=== PATIENT | male | born 1960 | race Caucasian/White ===

== ENCOUNTER → 2016-09-03 | Outpatient (CLI) | payer BC ==
[~2016-09-03] MED LIST: APRE1TAB3 PO; ASPCH81X PO; ASPI81TA28 PO; ATOR10TA88 PO; BUPR-267 PO; CALC0.5C17 PO; CALC1CRE2 TOP; CHOL200027 PO; CIPR-255 PO; COMPOUND TOP; DICLOFENAC GEL TOP; DULO60CA44 PO; FLM4 PO; LDXCR60 TOP; LEVO100T7 PO; LEVO25TA PO; LISI-461 PO; LPT10 PO; MELO7.5T5 PO; METO1TAB66 PO; MYCO500T5 PO; OXYC-57 PO; OXYC1TAB3 PO; PHEN-1043 PO; PHEN-775 PO; TAMS0.4C38 PO; TEST5GEL TOP; VLM5CL PO
[2016-09-03 14:12] LABS: THYROID STIMULATING HORMONE 0.414 uIu/ml (0.300-4.500)
== END | disposition home or self-care (01) ==
LOC: C.LABMFLN 07:50
PROVIDERS: ATTEND Family Medicine
DX: E55.9 Vitamin D deficiency, unspecified (principal); E03.9 Hypothyroidism, unspecified

== ENCOUNTER → 2016-10-03 | Outpatient (CLI) | payer BC ==
[~2016-10-03] MED LIST changes: +ATOR10TA82 PO; -ATOR10TA88 PO; +CALC0.5C PO; -CALC0.5C17 PO; +METO-452 PO; -METO1TAB66 PO
--- NOTE | 2016-10-03 10:19 | DIAGNOSTIC IMAGING REPORT ---
LEFT KNEE RADIOGRAPHS WITH COMPARISON STANDING AP RADIOGRAPH OF THE RIGHT KNEE CLINICAL HISTORY: Medial left knee pain. COMPARISON: None FINDINGS: Comparison standing AP radiograph of the right knee demonstrates minimal medial compartment joint space narrowing. Alignment of the left knee is anatomic. No joint effusion, fracture or suspicious lesion is evident. Joint spaces are preserved. Minimal osteophytosis is noted with preserved joint spaces. There is mild pre-/infrapatellar soft tissue swelling. IMPRESSION: 1. No acute fracture or joint effusion of the left knee. 2. Preserved joint spaces of the left knee with minimal osteophytosis. 3. Mild pre and infrapatellar soft tissue swelling. Electronically signed by: Antonio Hyde M.D. 10/03/2016 10:17 AM Dictated Date/Time: 10/03/2016 10:15 AM
== END | disposition home or self-care (01) ==
LOC: C.RDSM 10:00
PROVIDERS: ATTEND Physician Assistant
DX: M25.562 Pain in left knee (principal)

== ENCOUNTER → 2016-10-09 | Outpatient (CLI) | payer BC ==
--- NOTE | 2016-10-09 12:53 | DIAGNOSTIC IMAGING REPORT ---
LEFT KNEE MRI HISTORY: Left knee pain. COMPARISON STUDY: Left knee 10/03/2016. TECHNIQUE: Multiplanar multisequence MRI of the left knee was performed according to standard department protocol without the use of contrast. FINDINGS: Menisci: Tiny focus of abnormal signal the free edge of the posterior horn of the lateral meniscus. This is consistent with a small radial tear. Abnormal signal throughout the majority of the body and posterior horn of the medial meniscus is consistent with a combination of degeneration and a horizontal tear. This also extends to the posterior meniscal root. The body of the medial meniscus is slightly extruded from the joint space. Ligaments: The anterior and posterior cruciate ligaments are intact. The medial and lateral collateral ligaments are normal in appearance. Extensor mechanism: The quadriceps tendon and patellar ligament are intact. Articular cartilage and bone: No fracture or dislocation. Mild chondromalacia within the lateral tibial plateau. There is also mild cartilage fraying at the patellar facet. Joint effusion: Trace. Soft tissues: Tiny popliteal cyst. IMPRESSION: 1. Bilateral meniscal tears as described above. 2. Mild chondromalacia as described above. 3. Trace knee effusion. 4. Tiny popliteal cyst. Electronically signed by: Silvestre Gregorio M.D. 10/09/2016 12:50 PM Dictated Date/Time: 10/09/2016 12:42 PM
== END | disposition home or self-care (01) ==
LOC: C.MRIBC 11:26
PROVIDERS: ATTEND Physician Assistant
DX: M25.562 Pain in left knee (principal); M94.262 Chondromalacia, left knee; M25.462 Effusion, left knee; M71.22 Synovial cyst of popliteal space [Baker], left knee

== ENCOUNTER → 2016-10-10 | Outpatient (CLI) | payer BC ==
[2016-10-13 15:01] LABS: CARBOXY THC TO CREAT RATIO 55 NG/MG; CARBOXY THC UR GC/MS 89 NG/ML (CUTOFF=5); URCREATININE 163.5 MG/DL (>/= 20)
== END | disposition home or self-care (01) ==
LOC: C.LABMFLN 11:31
PROVIDERS: ATTEND Family Medicine
DX: M51.36 Other intervertebral disc degeneration, lumbar region (principal)

== ENCOUNTER → 2016-10-27 | Day surgery (SDC) | payer BC ==
[2016-10-13 12:23] VITALS: BMI 31.0
[2016-10-15 12:23] LABS: HEMATOCRIT 39.6 % (42-52); MEAN CELL VOLUME 65.8 fL (80-100); MEAN CORPUSCULAR HEMOGLOBIN 19.9 pg (25-34); MEAN CORPUSCULAR HGB CONC 30.3 g/dl (32-36); MEAN PLATELET VOLUME 10.9 fL (7.4-10.4); PLATELET COUNT 224 K/uL (130-400); RED BLOOD COUNT 6.02 M/uL (4.7-6.1); WHITE BLOOD COUNT 7.97 K/uL (4.8-10.8)
[2016-10-15 12:33] LABS: PROTHROMBIN TIME (PATIENT) 10.7 SECONDS (9.0-12.0)
[2016-10-15 14:26] LABS: CREATININE 0.89 mg/dl (0.60-1.40); POTASSIUM 3.9 mmol/L (3.5-5.1)
[2016-10-16 08:03] VITALS: Ht 185.4 cm; Wt 106.8 kg
[~2016-10-27] VITALS: Ht 185.4 cm; Wt 106.8 kg
[~2016-10-27] MED LIST changes: -ASPCH81X PO; +ATROPINE SULFATE 0.1 MG/ML 5ML SYR IV PRN; +BUPIVACAINE/EPINEPHRINE 0.5% MPF 1:200,000 30 ML VIAL ONE; +CEFAZOLIN 2000 MG/60 ML D5W IV SCH; -COMPOUND TOP; +DEXAMETHASONE SOD INJ 4 MG/ML VIAL ONE; +EpHEDrine SULFATE INJ 50 MG/ML AMP IV PRN; +EpHEDrine SULFATE INJ 50 MG/ML AMP ONE; +FENTANYL CITRATE INJ 50 MCG/1 ML 2 ML VIAL ONE; +GLYCOPYRROLATE INJ 0.2 MG/ML VIAL ONE; +HYDROmorphone INJ 1 MG/ML SYR IV PRN; +LABETALOL HCL IV 5 MG/ML 20ML IV PRN; +LACTATED RINGER'S 1000ML 1,000 ML IV SCH; -LEVO25TA PO; +LIDOCAINE HCL 1% 20 ML VIAL ONE; +LIDOCAINE HCL 2% 2 ML VIAL (20MG/ML) ONE; +METOCLOPRAMIDE HCL INJ 5 MG/ML 2 ML VIAL IV PRN; +MIDAZOLAM HCL 1 MG/ML 2ML VIAL ONE; +MoRPHine SULFATE 4 MG/ML 1 ML CARP\\VIAL IV PRN; +NALOXONE HCL 0.4 MG/1 ML VIAL/CARP IV PRN; +ONDANSETRON INJ 2 MG/ML 2 ML VIAL IV PRN; +ONDANSETRON INJ 2 MG/ML 2 ML VIAL ONE; +OXYCODONE/ACETAMINOPHEN 5-325 TAB PO PRN; +PROMETHAZINE HCL INJ 12.5 MG in SODIUM CHLORIDE 0.9% 50ML 50 ML IV PRN; +PROPOFOL IV EMULSION 10 MG/ML 20 ML VIAL IV ONE; +SODIUM CHLORIDE 0.9% 1000ML 1,000 ML IV SCH; +SODIUM CHLORIDE 0.9% INJ 10 ML VIAL ONE; +VASOPRESSIN 20 UNIT/ML VIAL ONE; +WATER, STERILE FOR INJ 10 ML VIAL ONE
--- NOTE | 2016-10-27 06:49 | History & Physical Bridge - SC ---
H&P Re-Evaluation Bridge Note: I have examined the patient, reviewed the History & Physical and in the interval since the performance of the History & Physical I have noted the following changes of clinical significance: No changes noted
--- NOTE | 2016-10-27 07:34 | Discharge Instructions-SurgCtr ---
Discharge Instructions Date of Service October 27, 2016. Visit Reason for Visit: Left Knee Meniscus Tears, Chondromalacia;Pre-Op Discharge Discharge Diagnosis / Problem: Left knee, medial/lateral meniscus tears, chondromalacia Discharge Goals Goal(s): Decrease discomfort, Improve function, Increase independence Medications Restart Stopped Medication(s): Please use Aspirin 325mg every AM & PM x 2 weeks for DVT prophylaxis Activity Recommendations Activity Limitations: as noted below Lifting Limitations: gradually increase as tolerated Exercise/Sports Limitations: gradually increase as tolerated Shower/Bathe: keep incision dry Driving or Machine Use: when post-operative narcotics have been discontinued, full weightbearing, and range of motion greater than 90 degrees Weightbearing Status: Left weightbearing (as tolerated) Anesthesia . Post Anesthesia Instructions: If you have had General Anesthesia or IV Sedation: * Do not drive today. * Resume driving when surgeon permits. * Do not make important decisions or sign legal documents today. * Call surgeon for: 1. Temperature elevations greater than 101 degrees F. 2. Uncontrollable pain. 3. Excessive bleeding. 4. Persistent nausea and vomiting. 5. Medication intolerance (nausea, vomiting or rash). * For nausea and vomiting use only clear liquids such as: tea, soda, bouillon until nausea subsides, then gradually increase diet as tolerated. * If you have any concerns or questions, call your surgeon's office. If physician is unavailable and it is an emergency, call 911 or go to the nearest emergency room. . Instructions / Follow-Up Instructions / Follow-Up DIET: * Resume previous diet. MEDICATIONS: * Please take your prescriptions as instructed at your pre-op appointment and/ or see medication discharge instructions listed above. * If concerns develop, call your physician's office at . SPECIAL CARE INSTRUCTIONS: * Ice/Elevate as instructed. * Keep dressing clean, dry, intact. * Your surgical extremity may be discolored due to prepping agents used on the skin. A bluish-green tint is a normal variant and should not cause alarm. Call your doctor at [phone] if: * Temperature above 101 degrees * Pain not relieved by pain medicine ordered * There is increased drainage or redness from any incision * You have any unanswered questions, problems or concerns. FOLLOW UP VISIT: * If not already scheduled, please call the office at to schedule a follow-up appointment. Diet Recommendations Home Diet: resume previous diet Procedures Procedures Performed: Left knee arthroscopy, loose body removal, partial medial and lateral meniscectomy, chondroplasty, exam under anesthesia Pending Studies Studies pending at discharge: no Medical Emergencies . Who to Call and When: Medical Emergencies: If at any time you feel your situation is an emergency, please call 911 immediately. . Non-Emergent Contact Non-Emergency issues call your: Primary Care Provider . . "Provider Documentation" section prepared by Kan Fry. . [place] Drug Monitoring Program Search Results: no issues identified
--- NOTE | 2016-10-27 08:13 | [facility] Post Operative Brief Note ---
Immediate Operative Summary Operative Date October 27, 2016. Pre-Operative Diagnosis Medial & Lateral Meniscus Tears, Chondromalacia Post-Operative Diagnosis Same, Loose Body Procedure(s) Performed Left knee arthroscopy, loose body removal, partial medial and lateral meniscectomy, chondroplasty, exam under anesthesia Surgeon Dr. Gaurang Arboleda Real Estate Salesperson Surgeon(s) Dr. Jeffery Robledo Findings same Specimens none Drains none Anesthesia general Complication(s) None Disposition Recovery Room / PACU
--- NOTE | 2016-10-27 08:46 | [facility] Operative Report ---
Operative Report Operative Date October 27, 2016. Pre-Operative Diagnosis Left knee Medial & Lateral Meniscus Tears, Chondromalacia Post-Operative Diagnosis Same, Loose Body Procedure(s) Performed 1) Left Knee Arthroscopy, Chondroplasty: Patella and Lateral Tibial Plateau W/ Partial Lateral Meniscectomy. 2) Removal Loose Body. 3) Partial Medial Meniscectomy. 4) Exam Under Anesthesia. Surgeon Dr. Gaurang Arboleda Edi Coordinator Surgeon(s) Dr. Jeffery Robledo Estimated Blood Loss 5CC Findings The left knee was examined under anesthesia. Range of motion was 0-130 degrees. Ligamentous examination exhibited: stable Stefani, posterior drawer, varus and valgus stress at 0 & 30 degrees. ARTHROSCOPIC FINDINGS: There was some synovitis in the suprapatellar pouch. 1) PATELLOFEMORAL JOINT: The articular cartilage of the Patella had Outerbridge type II changes about the central portion and lateral patellar facets. The Trochlea was intact. 2) GUTTERS: Several small loose bodies. 3) MEDIAL COMPARTMENT: The articular cartilage of the femur and Tibia was intact. The medial meniscus had a significant complex degenerative tear from the posterior horn to the apex. 4) ACL/PCL: They were both visualized and probed to be intact. 5) LATERAL COMPARTMENT: The lateral compartment was then entered in a figure-of- four position. The femoral articular cartilage was intact. The tibial articular cartilage had type II changes centrally and toward the posterior horn. The lateral meniscus had fraying posteriorly and along the apex. Fluids (cc crystalloids) 1350 Specimens none Drains N/A Anesthesia LMA Complication(s) None Disposition Recovery Room / PACU (Stable) Implants n/a Indications This is a 56-year-old male who has clinical and MRI findings consistent with left knee meniscus tear and chondromalacia. I recommended that a left knee arthroscopy be performed with meniscus repair vs debridement, possible chondroplasty versus microfracture. The patient understands the risks of surgery, which include but not limited to: bleeding, infection, re-operation, damage to nerves and arteries, continued knee pain, progression of OA, DVT, and a 2-5% risk of becoming worse after surgery. The patient understands all of these instructions and explanations, all of his questions have been satisfactorily addressed and the patient has elected to proceed. Informed consent was signed. Description of Procedure The patient was taken to the Operating Room and placed in the supine position after general anesthetic was administered. My initials and a multidisciplinary time-out were used to identify the left leg as the correct operative limb. Prior to the incision, 2 grams of intravenous Ancef was given. The left knee was then injected with 20cc of a 50:50 mix of 1% Lidocaine plain and 0.5% Bupivacaine with epinephrine in a sterile fashion using the superolateral portal. The left leg was then prepped and draped in a standard sterile fashion. The anterolateral, anteromedial, and superolateral portals were injected with the 50:50 mixture noted above, for a total of 10cc, in the standard fashion. An anterolateral arthroscopic portal was established with an 11-blade. Next, the arthroscope was introduced into the knee. A diagnostic arthroscopy commenced and both the superolateral and anteromedial portals were established under direct visualization using a spinal needle followed by an 11 blade in the standard fashion. The above findings were observed during the diagnostic arthroscopy. The synovitis and anterior fat pad were debrided as they were encounter with mechanical shaver and [place]. The loose bodies were removed as they were encountered with outflow cannula and mechanical shaver. The articular cartilage damage was debrided back to stable margins as they were encountered with mechanical shaver. The medial and lateral meniscus tears were evaluated and found to be irreparable and was debrided back to stable margin with hand punches, and mechanical shaver. The knee was copiously irrigated. The arthroscopic instruments were then removed. The portals were closed with 3-0 Prolene in a standard fashion. The wound was dressed with Xeroform gauze, sterile gauze, ABDs, sterile Webril, and a foot to thigh Andres bandage. The patient was then transferred to the Recovery Room in stable condition. The sponge and needle counts were correct. Post-op Instructions: The patient will be WBAT. The patient may remove the operative dressing on Post -Op Day #2 and apply Band-Aids to the wounds. The patient may shower in 72 hours and is to wear the ALEXIS for 2 weeks on the operative limb. The patient is to use the pain medicine as needed and take the ASA for 2 weeks. The patient was also given a handout for home quad strengthening and seated self-assisted ROM exercises, which they may begin tomorrow. The patient was given a prescription for PT and is scheduled for an appointment later this week. The patient is to follow up with me in 10-15 days. I attest to the content of the Intraoperative Record and any orders documented therein. Any exceptions are noted below.
--- NOTE | 2016-10-27 09:51 | Anesthesia Progress Nt - [facility] ---
Anesthesia Post Op Note Date & Time October 27, 2016 at 09:51 Vital Signs Pain Intensity: 4 Vital Signs Past 12 Hours Date Time Temp Pulse Resp B/P Pulse Ox O2 Delivery O2 Flow Rate FiO2 10/27/16 09:36 71 11 10/27/16 09:36 71 11 98 10/27/16 09:35 137/86 10/27/16 09:31 36.4 71 14 125/81 97 Room Air 10/27/16 09:31 69 15 10/27/16 09:31 68 15 92 10/27/16 09:30 125/81 10/27/16 09:26 67 12 98 10/27/16 09:26 67 12 10/27/16 09:25 142/79 10/27/16 09:21 72 22 10/27/16 09:21 72 22 93 10/27/16 09:20 134/85 10/27/16 09:16 74 20 10/27/16 09:16 75 20 93 10/27/16 09:15 146/95 10/27/16 09:11 73 15 98 10/27/16 09:11 73 15 10/27/16 09:10 154/99 10/27/16 09:06 72 20 97 10/27/16 09:06 72 20 10/27/16 09:05 153/88 10/27/16 09:01 75 18 10/27/16 09:01 74 18 99 10/27/16 09:00 151/89 10/27/16 08:56 77 21 10/27/16 08:56 21 10/27/16 08:55 148/86 10/27/16 08:51 83 24 154/101 94 10/27/16 08:51 36.7 85 16 154/101 97 Mask 6 10/27/16 08:51 88 24 10/27/16 06:49 37 59 16 140/83 97 Room Air Notes Mental Status: alert / awake / arousable, participated in evaluation Pt Amnestic to Procedure: Yes Nausea / Vomiting: adequately controlled Pain: adequately controlled Airway Patency, RR, SpO2: stable & adequate BP & HR: stable & adequate Hydration State: stable & adequate Anesthetic Complications: no major complications apparent
[2016-10-27 10:15] VITALS: BP 135/80; PULSE 56; O2SAT 96
== END | disposition home or self-care (01) ==
LOC: X.SURG 06:25
PROVIDERS: ATTEND Orthopaedic Surgery Sports Medicine
DX: M23.222 Derangement of posterior horn of medial meniscus due to old tear or injury, left knee (principal); M23.262 Derangement of other lateral meniscus due to old tear or injury, left knee; M94.262 Chondromalacia, left knee; I10 Essential (primary) hypertension; G47.30 Sleep apnea, unspecified; F41.9 Anxiety disorder, unspecified; Z79.82 Long term (current) use of aspirin; Z79.899 Other long term (current) drug therapy

== ENCOUNTER → 2016-12-04 | Outpatient (CLI) | payer BC ==
[~2016-12-04] MED LIST changes: -ATROPINE SULFATE 0.1 MG/ML 5ML SYR IV PRN; -BUPIVACAINE/EPINEPHRINE 0.5% MPF 1:200,000 30 ML VIAL ONE; -CEFAZOLIN 2000 MG/60 ML D5W IV SCH; -DEXAMETHASONE SOD INJ 4 MG/ML VIAL ONE; -EpHEDrine SULFATE INJ 50 MG/ML AMP IV PRN; -EpHEDrine SULFATE INJ 50 MG/ML AMP ONE; -FENTANYL CITRATE INJ 50 MCG/1 ML 2 ML VIAL ONE; -GLYCOPYRROLATE INJ 0.2 MG/ML VIAL ONE; -HYDROmorphone INJ 1 MG/ML SYR IV PRN; -LABETALOL HCL IV 5 MG/ML 20ML IV PRN; -LACTATED RINGER'S 1000ML 1,000 ML IV SCH; -LIDOCAINE HCL 1% 20 ML VIAL ONE; -LIDOCAINE HCL 2% 2 ML VIAL (20MG/ML) ONE; -METOCLOPRAMIDE HCL INJ 5 MG/ML 2 ML VIAL IV PRN; -MIDAZOLAM HCL 1 MG/ML 2ML VIAL ONE; -MoRPHine SULFATE 4 MG/ML 1 ML CARP\\VIAL IV PRN; -NALOXONE HCL 0.4 MG/1 ML VIAL/CARP IV PRN; -ONDANSETRON INJ 2 MG/ML 2 ML VIAL IV PRN; -ONDANSETRON INJ 2 MG/ML 2 ML VIAL ONE; -OXYCODONE/ACETAMINOPHEN 5-325 TAB PO PRN; -PROMETHAZINE HCL INJ 12.5 MG in SODIUM CHLORIDE 0.9% 50ML 50 ML IV PRN; -PROPOFOL IV EMULSION 10 MG/ML 20 ML VIAL IV ONE; -SODIUM CHLORIDE 0.9% 1000ML 1,000 ML IV SCH; -SODIUM CHLORIDE 0.9% INJ 10 ML VIAL ONE; -VASOPRESSIN 20 UNIT/ML VIAL ONE; -WATER, STERILE FOR INJ 10 ML VIAL ONE
== END | disposition home or self-care (01) ==
LOC: C.LABMFLN 09:28
PROVIDERS: ATTEND Internal Medicine Endocrinology, Diabetes & Metabolism
DX: M85.80 Other specified disorders of bone density and structure, unspecified site (principal)

== ENCOUNTER 2016-12-22 07:48 | Emergency (ER) | payer BC ==
[~2016-12-22] VITALS: Ht 185.4 cm; Wt 101.2 kg
[~2016-12-22 07:48] MED LIST changes: -APRE1TAB3 PO; -ASPI81TA28 PO; -ATOR10TA82 PO; -CALC0.5C PO; -CIPR-255 PO; -DICLOFENAC GEL TOP; -FLM4 PO; -MELO7.5T5 PO; -OXYC1TAB3 PO; -PHEN-1043 PO; -PHEN-775 PO; -TAMS0.4C38 PO; -TEST5GEL TOP
[2016-12-22 07:51] VITALS: TEMP 36.6; Ht 185.4 cm; Wt 101.2 kg
[2016-12-22] MEDS ORDERED: MoRPHine SULFATE 10 MG/ML CARP/VIAL IV STA (08:22)
[2016-12-22] MEDS ORDERED: SODIUM CHLORIDE 0.9% 1000ML 1,000 ML IV STA (08:22)
[2016-12-22] MEDS ORDERED: ONDANSETRON INJ 2 MG/ML 2 ML VIAL IV STA (08:22)
[2016-12-22 08:52] LABS: URINE APPEARANCE CLEAR (CLEAR); URINE BILIRUBIN NEG (NEG); URINE COLOR YELLOW; URINE NITRITE NEG (NEG); URINE PH 5.5 (4.5-7.5); URINE SPECIFIC GRAVITY 1.016 (1.000-1.030); UROBILINOGEN NEG (NEG); ZZUR CULT IF INDIC CLEAN CATCH NO
[2016-12-22 08:53] LABS: MANUAL MICROSCOPIC REQUIRED? NO; REVIEW REQ? NO
[2016-12-22 08:54] LABS: BASO % 0.5 %; BASO ABS # 0.06 K/uL (0-0.2); EOS % 0.7 %; IG% 0.3 %; LYMPH % 24.8 %; LYMPH ABS # 2.88 K/uL (1.2-3.4); MEAN CELL VOLUME 65.6 fL (80-100); MEAN CORPUSCULAR HEMOGLOBIN 20.9 pg (25-34); MEAN CORPUSCULAR HGB CONC 31.9 g/dl (32-36); MONO % 9.2 %; NEUT % 64.5 %; PLATELET COUNT 222 K/uL (130-400); RED BLOOD COUNT 6.55 M/uL (4.7-6.1); WHITE BLOOD COUNT 11.59 K/uL (4.8-10.8)
--- NOTE | 2016-12-22 09:06 | DIAGNOSTIC IMAGING REPORT ---
PA CHEST WITH ABDOMINAL SERIES CLINICAL HISTORY: Left-sided abdominal pain. Reported history of recent diagnosis of diverticulitis. FINDINGS: A PA chest radiograph is compared to study dated 01/02/2014 and correlated with chest CT dated 01/02/2014. The heart is top normal in size. The mediastinal contour is within normal limits. There is chronic elevation of the right hemidiaphragm with associated atelectasis. Nonspecific interstitial thickening is similar to previous. No airspace consolidation is seen typical for pneumonia and there is no large pleural effusion. No pneumothorax is seen. The skeletal structures are osteopenic. The bony thorax is grossly intact. Supine and erect abdominal radiographs are correlated with abdominal CT dated 01/02/2014. There is a nonobstructed abdominal bowel gas pattern. No evidence of intraperitoneal free air is seen. Postoperative change is noted in the left mid abdomen and the pelvis. There are no abnormal abdominal calcifications. Numerous pelvic phleboliths are observed. There is moderate to advanced lumbosacral spondylosis with evidence of previous lumbosacral spinal surgery. The bony pelvis appears intact. IMPRESSION: 1. No acute cardiopulmonary abnormality. 2. Nonobstructed abdominal bowel gas pattern. 3. No intraperitoneal free air is seen.. Electronically signed by: Pavan Butterfield M.D. 12/22/2016 9:05 AM Dictated Date/Time: 12/22/2016 9:02 AM
[2016-12-22 09:13] LABS: BUN/CREATININE RATIO 10.5 (10-20); CALCIUM 9.2 mg/dl (8.5-10.1); CREATININE 1.1 mg/dl (0.60-1.40); POTASSIUM 3.8 mmol/L (3.5-5.1)
[2016-12-22 09:23] LABS: COMPLETE YES; MICROCYTOSIS PRESENT
[2016-12-22] MEDS ORDERED: TAMS0.4C38 PO (10:33)
--- NOTE | 2016-12-22 10:35 | EMERGENCY ROOM VISIT NOTE ---
History First contact with patient: 07:57 Chief Complaint: ABDOMINAL PAIN Stated Complaint: STOMACH PAIN Nursing Triage Summary: Pt presents with left sided abd pain, worse since Sat. Seen at [facility] on Sat and dx with diverticulitis and placed on Cipro/Flagyl. Pt states last BM was mid week last week. History of Present Illness The patient is a 56 year old male who presents to the Emergency Room with complaints of left-sided abdominal pain. The patient states that his symptoms started one week ago. He admits to associated nausea but denies any vomiting. The patient denies any hematochezia or melena. The patient denies any urinary symptoms of frequency, urgency, dysuria. The patient denies any fever. The patient has a history of diverticulitis. He went to [facility] ER on Thursday and they did a CT of his abdomen which revealed diverticulitis. He was placed on Cipro and Flagyl as well as Percocet for pain. He was not instructed to follow a clear liquid diet although the patient states he does not have an appetite. The patient presents today because he woke up at 3 AM with severe left lower quadrant pain. He took a Percocet without any relief. The patient also states that he is concerned because he had a perforation due to his diverticulitis in the past. He had a temporary colostomy. Review of Systems 10 system review was performed and was negative unless stated otherwise history of present illness. Past Medical/Surgical History Medical Problems: (1) Bronchitis (2) Chronic back pain greater than 3 months duration (3) Depression (4) Diverticulitis (5) HTN (hypertension) (6) Hypothyroidism (7) Kidney stone (8) Psoriasis Surgical Problems: (1) History of appendectomy (2) History of back surgery Family History Diabetes mellitus FH: VT (myocardial infarction) FH: cancer Hypertension Social History Smoking Status: Former Smoker Alcohol Use: occasionally Marital Status: Housing Status: lives with significant other Occupation Status: employed Current/Historical Medications Scheduled Bupropion Hcl (Bupropion Hcl Er), 150 MG PO QAM Cholecalciferol (Vitamin D-3), 5,000 UNIT PO QAM Duloxetine Hcl (Cymbalta), 1 CAP PO QAM Levothyroxine Sodium (Levothyroxine Sodium), 1 TAB PO QAM Lisinopril (Lisinopril), 10 MG PO QAM Metoprolol Succinate (Toprol Xl), 50 MG PO HS Mycophenolate Mofetil (Mycophenolate Mofetil), 1,500 MG PO QAM Scheduled PRN Calcipotriene (Calcipotriene), 1 APPLN TOP for PSORIASIS Diazepam (Diazepam), 5 MG PO for BACK SPASMS Fluocinonide (Fluocinonide), 1 APPLN TOP for PSORIASIS Oxycodone/Acetaminophen 5MG/325MG (Percocet 5MG/325MG), 0.5-1 TABLET PO Q8 PRN for Pain Allergies Coded Allergies: No Known Allergies (Unverified , 12/22/16) Physical Exam Vital Signs Date Time Temp Pulse Resp B/P (MAP) Pulse Ox O2 Delivery O2 Flow Rate FiO2 12/22/16 10:05 63 18 189/99 98 Room Air 12/22/16 07:51 36.6 86 18 169/103 98 Room Air Physical Exam GENERAL: 56-year-old white male appears slightly uncomfortable secondary to pain. MENTAL Status: Alert and oriented 3. EYES: No icterus noted MOUTH: Mucosa is moist NECK: Supple, no lymphadenopathy noted. No carotid bruits noted. LUNGS: Clear auscultation without wheezes rales or rhonchi. CARDIAC: Regular rate and rhythm without murmur. Pulses is full and equal throughout. BACK: No CVA tenderness noted. ABDOMEN: Positive bowel sounds all 4 quadrants. Soft, tenderness to palpation in the left lower quadrant otherwise nontender without organomegaly or masses. No rebound or rigidity noted. No peritoneal signs. EXTREMITIES: No cyanosis or edema noted. Medical Decision & Procedures ER Provider Diagnostic Interpretation: PA CHEST WITH ABDOMINAL SERIES CLINICAL HISTORY: Left-sided abdominal pain. Reported history of recent diagnosis of diverticulitis. FINDINGS: A PA chest radiograph is compared to study dated 01/02/2014 and correlated with chest CT dated 01/02/2014. The heart is top normal in size. The mediastinal contour is within normal limits. There is chronic elevation of the right hemidiaphragm with associated atelectasis. Nonspecific interstitial thickening is similar to previous. No airspace consolidation is seen typical for pneumonia and there is no large pleural effusion. No pneumothorax is seen. The skeletal structures are osteopenic. The bony thorax is grossly intact. Supine and erect abdominal radiographs are correlated with abdominal CT dated 01/02/2014. There is a nonobstructed abdominal bowel gas pattern. No evidence of intraperitoneal free air is seen. Postoperative change is noted in the left mid abdomen and the pelvis. There are no abnormal abdominal calcifications. Numerous pelvic phleboliths are observed. There is moderate to advanced lumbosacral spondylosis with evidence of previous lumbosacral spinal surgery. The bony pelvis appears intact. IMPRESSION: 1. No acute cardiopulmonary abnormality. 2. Nonobstructed abdominal bowel gas pattern. 3. No intraperitoneal free air is seen.. Electronically signed by: Pavan Butterfield M.D. 12/22/2016 9:05 AM Dictated Date/Time: 12/22/2016 9:02 AM Laboratory Results 12/22/16 08:05 Red Blood Count 6.55, Mean Corpuscular Volume 65.6, Mean Corpuscular Hemoglobin 20.9, Mean Corpuscular Hemoglobin Concent 31.9, Neutrophils (%) (Auto) 64.5, Lymphocytes (%) (Auto) 24.8, Monocytes (%) (Auto) 9.2, Eosinophils (%) (Auto) 0.7, Basophils (%) (Auto) 0.5, Neutrophils # (Auto) 7.47, Lymphocytes # (Auto) 2.88, Monocytes # (Auto) 1.07, Eosinophils # (Auto) 0.08, Basophils # (Auto) 0.06 12/22/16 08:05 Test 12/22/16 08:05 12/22/16 08:30 White Blood Count 11.59 K/uL (4.8-10.8) Red Blood Count 6.55 M/uL (4.7-6.1) Hemoglobin 13.7 g/dL (14.0-18.0) Hematocrit 43.0 % (42-52) Mean Corpuscular Volume 65.6 fL (80-100) Mean Corpuscular Hemoglobin 20.9 pg (25-34) Mean Corpuscular Hemoglobin Concent 31.9 g/dl (32-36) Platelet Count 222 K/uL (130-400) Neutrophils (%) (Auto) 64.5 % Lymphocytes (%) (Auto) 24.8 % Monocytes (%) (Auto) 9.2 % Eosinophils (%) (Auto) 0.7 % Basophils (%) (Auto) 0.5 % Neutrophils # (Auto) 7.47 K/uL (1.4-6.5) Lymphocytes # (Auto) 2.88 K/uL (1.2-3.4) Monocytes # (Auto) 1.07 K/uL (0.11-0.59) Eosinophils # (Auto) 0.08 K/uL (0-0.5) Basophils # (Auto) 0.06 K/uL (0-0.2) RDW Standard Deviation 37.0 fL (36.4-46.3) RDW Coefficient of Variation 15.7 % (11.5-14.5) Immature Granulocyte % (Auto) 0.3 % Immature Granulocyte # (Auto) 0.03 K/uL (0.00-0.02) Microcytosis PRESENT Anion Gap 7.0 mmol/L (3-11) Est Creatinine Clear Calc Drug Dose 91.5 ml/min Estimated GFR () 85.3 Estimated GFR (Non- 73.6 BUN/Creatinine Ratio 10.5 (10-20) Calcium Level 9.2 mg/dl (8.5-10.1) Total Bilirubin 0.8 mg/dl (0.2-1) Direct Bilirubin 0.1 mg/dl (0-0.2) Aspartate Amino Transf (AST/SGOT) 12 U/L (15-37) Alanine Aminotransferase (ALT/SGPT) 28 U/L (12-78) Alkaline Phosphatase 66 U/L (45-117) Total Protein 7.1 gm/dl (6.4-8.2) Albumin 4.0 gm/dl (3.4-5.0) Lipase 469 U/L (73-393) Urine Color YELLOW Urine Appearance CLEAR (CLEAR) Urine pH 5.5 (4.5-7.5) Urine Specific [place] 1.016 (1.000-1.030) Urine Protein 1+ (NEG) Urine Glucose (UA) NEG (NEG) Urine Ketones NEG (NEG) Urine Occult Blood 3+ (NEG) Urine Nitrite NEG (NEG) Urine Bilirubin NEG (NEG) Urine Urobilinogen NEG (NEG) Urine Leukocyte Esterase SMALL (NEG) Urine WBC (Auto) 1-5 /hpf (0-5) Urine RBC (Auto) >30 /hpf (0-4) Urine Hyaline Casts (Auto) 1-5 /lpf (0-5) Urine Epithelial Cells (Auto) 5-10 /lpf (0-5) Urine Bacteria (Auto) NEG (NEG) Medications Administered Medications (Trade) Dose Ordered Sig/Jeyson Route Start Time Stop Time Status Last Admin Dose Admin Sodium Chloride 1,000 ml @ 999 mls/hr Q1H1M STAT IV 12/22/16 08:22 12/22/16 09:22 DC 12/22/16 08:43 999 MLS/HR Ondansetron HCl (Zofran Inj) 4 mg NOW STAT IV 12/22/16 08:22 12/22/16 08:25 DC 12/22/16 08:43 4 MG Morphine Sulfate (MoRPHine SULFATE INJ) 6 mg NOW STAT IV 12/22/16 08:22 12/22/16 08:25 DC 12/22/16 08:44 6 MG ED Course The patient was evaluated. The patient's EMR and medication list were reviewed. I had the wrapper caser try to obtain the patient's ER notes from [facility]. [employer] [place] system was down therefore I never received the report from [facility] [address] concerning the patient's CT. The did admit that they told her that he had stones in his kidneys but not any in his ureter when he had a CAT scan performed on Thursday. He also has an appointment set up to follow-up with urology. IV access was obtained. The patient was given 1 L normal saline wide-open. He was given Zofran 4 mg IV for nausea and morphine 6 mg IV for pain. CBC and differential, renal profile, LFTs and lipase levels were ordered. Urinalysis was ordered. Abdominal series x-ray was ordered and interpreted by the radiologist and myself as above without any acute findings. Labs are reviewed and were unremarkable. Urinalysis revealed 3+ blood, small amount of leukocytes and no evidence of bacteria. Urine culture is pending. The patient was informed of all findings and reevaluated was feeling much better. The patient's case was discussed with Dr. Strong who agreed with treatment plan. The patient was discharged home in stable condition. Medical Decision Differential diagnosis include diverticulitis, bowel perforation, small bowel obstruction, ureteral calculi, UTI A repeat CT scan was not performed since he had one done 2 days ago. I do not feel that the medications have had a chance to work any possibility might have a secondary ureteral calculi contributing to his pain. Impression Primary Impression: Left lower quadrant pain Additional Impressions: Hematuria Diverticulitis Departure Information Dispostion Home / Self-Care Condition GOOD Prescriptions Tamsulosin Hcl (FLOMAX) 0.4 Mg Cap 0.4 MG PO DAILY for 7 Days, #7 CAP Prov: Gita Ruiz PA-C 12/22/16 Referrals Lisa Faulkner M.D. (PCP) Forms Call Back Authorization, HOME CARE DOCUMENTATION FORM, IMPORTANT VISIT INFORMATION Patient Instructions ED Diet Clear Liquid, ED Diverticulitis, Kidney Stones - [facility], [facility], [facility] Additional Instructions Follow clear liquid diet for 24 hours. Continue Cipro and Flagyl as prescribed. Ibuprofen 600 mg every 6 hours for pain. Take Percocet as needed for more severe pain. Do not drive while taking the Percocet. Strain all urine. Take Flomax daily as prescribed. Follow-up with your family doctor later this week for recheck and also keep scheduled appointment with urologist. If you experience any severe abdominal pain, high fevers, uncontrolled nausea vomiting return to ER immediately. Problem Qualifiers Additional Impressions: Diverticulitis Diverticulitis bleeding: unspecified bleeding status Diverticulitis complication: without perforation or abscess
[2016-12-22 11:06] VITALS: BP 162/100; PULSE 62; O2SAT 96
[2017-01-28] MEDS ORDERED: ASPI81TA28 PO (10:05)
[2017-01-28] MEDS ORDERED: CALC0.5C PO (10:05)
[2017-01-28] MEDS ORDERED: APRE1TAB3 PO (10:05)
[2017-01-28] MEDS ORDERED: TEST5GEL TOP (10:05)
[2017-01-28] MEDS ORDERED: ATOR10TA82 PO (10:05)
[2017-01-28] MEDS ORDERED: DICLOFENAC GEL TOP (10:05)
[2017-01-29] MEDS ORDERED: PHEN-775 PO (14:37)
[2017-01-29] MEDS ORDERED: CIPR-255 PO (14:37)
[2017-01-29] MEDS ORDERED: OXYC-57 PO (14:37)
[2017-01-29] MEDS ORDERED: TAMS0.4C38 PO (14:37)
== END 2016-12-22 11:12 | disposition home or self-care (01) ==
LOC: C.EDB 07:49
DX: R10.32 Left lower quadrant pain (principal); R31.9 Hematuria, unspecified; K57.92 Diverticulitis of intestine, part unspecified, without perforation or abscess without bleeding; I10 Essential (primary) hypertension; F32.9 Major depressive disorder, single episode, unspecified; E03.9 Hypothyroidism, unspecified; Z87.442 Personal history of urinary calculi; Z87.891 Personal history of nicotine dependence; Z98.890 Other specified postprocedural states; Z83.3 Family history of diabetes mellitus; Z82.49 Family history of ischemic heart disease and other diseases of the circulatory system; Z79.899 Other long term (current) drug therapy

== ENCOUNTER → 2017-01-05 | Outpatient (CLI) | payer BC ==
[~2017-01-05] MED LIST changes: +APRE1TAB3 PO; +ASPI81TA28 PO; +ATOR10TA88 PO; +CALC0.5C17 PO; +CIPR-255 PO; +DICLOFENAC GEL TOP; +FLM4 PO; -LPT10 PO; +MELO7.5T5 PO; -METO-452 PO; +METO1TAB66 PO; +OXYC1TAB3 PO; +PHEN-1043 PO; +PHEN-775 PO; +TAMS0.4C38 PO; +TEST5GEL TOP
== END | disposition home or self-care (01) ==
LOC: C.LABMFLN 08:09
PROVIDERS: ATTEND Family Medicine
DX: N20.1 Calculus of ureter (principal)

== ENCOUNTER → 2017-01-27 | Outpatient (CLI) | payer BC ==
[2017-01-27 12:20] LABS: BASO % 0.3 %; BASO ABS # 0.04 K/uL (0-0.2); EOS % 0.9 %; HEMATOCRIT 43.5 % (42-52); IG% 0.3 %; LYMPH % 23.4 %; LYMPH ABS # 3.06 K/uL (1.2-3.4); MEAN CELL VOLUME 65.2 fL (80-100); MEAN CORPUSCULAR HEMOGLOBIN 20.4 pg (25-34); MEAN CORPUSCULAR HGB CONC 31.3 g/dl (32-36); MEAN PLATELET VOLUME 10.1 fL (7.4-10.4); MONO % 11.8 %; NEUT % 63.3 %; PLATELET COUNT 219 K/uL (130-400); RED BLOOD COUNT 6.67 M/uL (4.7-6.1); WHITE BLOOD COUNT 13.09 K/uL (4.8-10.8)
[2017-01-27 12:48] LABS: COMPLETE YES; MICROCYTOSIS PRESENT
[2017-01-27 12:49] LABS: BLOOD UREA NITROGEN 17 mg/dl (7-18); BUN/CREATININE RATIO 10.9 (10-20); CARBON DIOXIDE 29 mmol/L (21-32); CHLORIDE 106 mmol/L (98-107); GLUCOSE 86 mg/dl (70-99); POTASSIUM 4.3 mmol/L (3.5-5.1); SODIUM 139 mmol/L (136-145)
== END | disposition home or self-care (01) ==
LOC: C.LAB 10:52
PROVIDERS: ATTEND Urology
DX: N20.0 Calculus of kidney (principal)

== ENCOUNTER → 2017-01-29 | Day surgery (SDC) | payer BC ==
[2017-01-28 10:05] VITALS: BMI 31.0
[~2017-01-29] VITALS: Ht 185.4 cm; Wt 109.1 kg
[~2017-01-29] MED LIST changes: +ATROPINE SULFATE 0.1 MG/ML 5ML SYR IV PRN; +CIPROFLOXACIN / D5W 400 MG IV SCH; +CONRAY 30% 150ML BOTTLE ONE; +DEXAMETHASONE SOD INJ 4 MG/ML VIAL ONE; +EpHEDrine SULFATE 50MG/5ML SYR ONE; +EpHEDrine SULFATE INJ 50 MG/ML AMP IV PRN; +EpHEDrine SULFATE INJ 50 MG/ML AMP ONE; +FENTANYL CITRATE INJ 50 MCG/1 ML 2 ML VIAL IV PRN; +FENTANYL CITRATE INJ 50 MCG/1 ML 2 ML VIAL ONE; +KETOROLAC TROMETHAMINE 30 MG/ML VIAL IV. STA; +LACTATED RINGER'S 1000ML 1,000 ML IV SCH; +LIDOCAINE HCL 2% 2 ML VIAL (20MG/ML) ONE; +MIDAZOLAM HCL 1 MG/ML 2ML VIAL ONE; +ONDANSETRON INJ 2 MG/ML 2 ML VIAL IV PRN; +ONDANSETRON INJ 2 MG/ML 2 ML VIAL ONE; +OXYCODONE/ACETAMINOPHEN 5-325 TAB PO PRN; +PROPOFOL IV EMULSION 10 MG/ML 20 ML VIAL IV ONE; +SODIUM CHLORIDE 0.9% 1000ML 1,000 ML IV SCH; -VLM5CL PO
[2017-01-29 10:11] VITALS: BP 142/88; PULSE 64; TEMP 36.9; O2SAT 98; Ht 185.4 cm; Wt 109.1 kg
--- NOTE | 2017-01-29 14:35 | [facility] Operative Report ---
Operative Report Operative Date Jan 29, 2017. Pre-Operative Diagnosis Left Ureteral Stone Post-Operative Diagnosis Left ureteral stone Procedure(s) Performed Cystoscopy, Retrograde, ureteroscopy, Laser Lithotripsy, Basket extraction , and Ureteral Stent Insertion ([id number]), Left Surgeon Dr. Joaquim Rollins Call Or Contact Centre Coach Surgeon(s) None Estimated Blood Loss 5 ml Findings Left distal ureteral calculus-located just below the vessels Specimens a, Left urtereral stone fragments- Stone analysis Drains 6 Slovenian by 2232 centimeter stent Anesthesia Gen. Complication(s) None Disposition Recovery Room / PACU (stable) Indications Symptomatically left ureteral calculus Description of Procedure Albaro Preston was identified in the preoperative holding area, appropriate informed consents were reviewed and completed and the patient was transported to the operating suite. Upon arrival he received appropriate preoperative antibiotics in the form of ciprofloxacin. Adequate general anesthesia was achieved, and the patient was placed in dorsal lithotomy position where he was sterilely prepped and draped in standard fashion. I begin the case by passing a 22 Slovenian cystoscope with 30 lens. Inspection of the urethra revealed no stricture disease. He has a moderately enlarged prostate was slightly high bladder neck. Full inspection of the bladder was carried out, identifying no tumors stones or other abnormalities. Ureteral orifices were easily identified in orthotopic position. I turned my attention to the left ureteral orifice and cannulated it with a sensor wire and a 10 Slovenian double-lumen catheter. The wire advanced easily, as I went to advance the 10 Slovenian double-lumen I felt slight resistance in the distal ureter. I stopped advancing at that time. I placed a second wire through the second port of the catheter and withdrew the 10 Slovenian double-lumen. I then reentered the ureter up alongside the wires utilizing a semirigid ureteroscope. At the level where I previously palpated resistance, I identified a yellow calculus filling the lumen of the ureter. I passed a 400 laser fiber and began laser lithotripsy. I fragmented the stone into pieces deemed safe for spontaneous passage. I attempted to irrigate the pieces out of the ureter, however this proved to be more difficult than anticipated. As the stones were quite small, I passed a basket and withdrew the stones sequentially utilizing the basket. The stones collected were passed off the table as a specimen for chemical analysis. I passed the scope 1 last time through the ureter, identifying no other retained stones. I then performed retrograde pyelogram, which revealed no hydronephrosis nor filling defects. I placed a 6 Slovenian by 22-32 centimeter double-J ureteral stent observing a good curl in the kidney as well as in the bladder. I decompressed the bladder and concluded the case. Patient was extubated and taken to the PACU in stable condition. I attest to the content of the Intraoperative Record and any orders documented therein. Any exceptions are noted below.
--- NOTE | 2017-01-29 14:36 | DIAGNOSTIC IMAGING REPORT ---
KUB HISTORY: Left LASER/LITHOTRIPSY/ STENT FLUOROSCOPY TIME: 13 seconds. FINDINGS: 3 fluoroscopic spot images were submitted for review. A guidewire and contrast were placed in the left ureter in a retrograde fashion. This is followed by placement of a left ureteral stent. Only the proximal portion of the stent is visualized and is likely in good position. IMPRESSION: Fluoroscopy provided for left ureteral stent placement. Electronically signed by: Silvestre Gregorio M.D. 01/29/2017 2:35 PM Dictated Date/Time: 01/29/2017 2:33 PM
--- NOTE | 2017-01-29 14:40 | Discharge Instructions ---
Discharge Instructions Date of Service Jan 29, 2017. Admission Reason for Admission: Left Ureteral Stone Discharge Discharge Diagnosis / Problem: stone Discharge Goals Goal(s): Decrease discomfort, Improve function, Increase independence, Improve disease control, Prevent Disease Progression Activity Recommendations Activity Limitations: resume your previous activity Lifting Limitations: none Exercise/Sports Limitations: none May Resume Sexual Activity: when tolerated Shower/Bathe: no limitations Driving or Machine Use: resume 1 day after discharge . Instructions / Follow-Up Instructions / Follow-Up Please keep your previously scheduled follow-up appointment for stent removal Discharge Diet Recommended Diet: Regular Diet Procedures Procedures Performed: Cystoscopy, Retrograde, ureteroscopy, Laser Lithotripsy, Basket extraction , and Ureteral Stent Insertion ([id number]), Left Pending Studies Studies pending at discharge: no Medical Emergencies . Who to Call and When: Medical Emergencies: If at any time you feel your situation is an emergency, please call 911 immediately. . Non-Emergent Contact Non-Emergency issues call your: Urologist Call Non-Emergent contact if: you have a fever, temperature is above 101.5, your pain is not controlled, your pain is worsening . . "Provider Documentation" section prepared by Paco Rodriguez. . VTE Core Measure Inpt VTE Proph given/why not?: Treatment not indicated
[2017-01-29 15:10] VITALS: BP 158/96; PULSE 76; TEMP 36.7; O2SAT 94
--- NOTE | 2017-01-29 15:17 | Anesthesiology Progress Note ---
Anesthesia Post Op Note Date & Time Jan 29, 2017 at 15:17 Vital Signs Pain Intensity: 0 Vital Signs Past 12 Hours Date Time Temp Pulse Resp B/P (MAP) Pulse Ox O2 Delivery O2 Flow Rate FiO2 01/29/17 15:04 36.6 75 20 150/88 94 Room Air 01/29/17 15:02 150/88 01/29/17 15:01 72 12 92 01/29/17 15:01 72 12 01/29/17 15:00 164/100 01/29/17 14:56 75 17 01/29/17 14:56 75 17 93 01/29/17 14:55 158/100 01/29/17 14:51 78 17 01/29/17 14:51 80 17 93 01/29/17 14:50 164/92 01/29/17 14:46 78 19 01/29/17 14:46 78 19 155/85 99 01/29/17 14:41 76 20 100 01/29/17 14:41 76 20 01/29/17 14:40 164/96 01/29/17 14:36 81 14 01/29/17 14:36 81 14 98 01/29/17 14:35 163/90 01/29/17 14:31 36.5 76 16 168/91 97 Mask 10 01/29/17 14:31 85 21 01/29/17 14:31 86 21 168/91 98 01/29/17 10:11 36.9 64 18 142/88 (106) 98 Room Air Notes Mental Status: alert / awake / arousable, participated in evaluation Pt Amnestic to Procedure: Yes Nausea / Vomiting: adequately controlled Pain: adequately controlled Airway Patency, RR, SpO2: stable & adequate BP & HR: stable & adequate Hydration State: stable & adequate Anesthetic Complications: no major complications apparent
[2017-01-29 15:45] VITALS: BP 161/85; PULSE 77; TEMP 36.7; O2SAT 97
== END | disposition home or self-care (01) ==
LOC: C.ACU 09:46
PROVIDERS: ATTEND Urology
DX: N20.0 Calculus of kidney (principal); N20.1 Calculus of ureter; Z79.82 Long term (current) use of aspirin; I48.91 Unspecified atrial fibrillation; I10 Essential (primary) hypertension; E11.9 Type 2 diabetes mellitus without complications; E78.5 Hyperlipidemia, unspecified; E03.9 Hypothyroidism, unspecified; M85.80 Other specified disorders of bone density and structure, unspecified site; E29.1 Testicular hypofunction; E66.9 Obesity, unspecified; R73.03 Prediabetes; I15.9 Secondary hypertension, unspecified; E55.9 Vitamin D deficiency, unspecified; Z90.89 Acquired absence of other organs; Z82.49 Family history of ischemic heart disease and other diseases of the circulatory system; Z80.43 Family history of malignant neoplasm of testis; F32.9 Major depressive disorder, single episode, unspecified; G47.33 Obstructive sleep apnea (adult) (pediatric); M54.5 Low back pain; D56.3 Thalassemia minor

== ENCOUNTER → 2017-02-04 | Outpatient (CLI) | payer BC ==
[~2017-02-04] MED LIST changes: -ATROPINE SULFATE 0.1 MG/ML 5ML SYR IV PRN; -CIPROFLOXACIN / D5W 400 MG IV SCH; -CONRAY 30% 150ML BOTTLE ONE; -DEXAMETHASONE SOD INJ 4 MG/ML VIAL ONE; -EpHEDrine SULFATE 50MG/5ML SYR ONE; -EpHEDrine SULFATE INJ 50 MG/ML AMP IV PRN; -EpHEDrine SULFATE INJ 50 MG/ML AMP ONE; -FENTANYL CITRATE INJ 50 MCG/1 ML 2 ML VIAL IV PRN; -FENTANYL CITRATE INJ 50 MCG/1 ML 2 ML VIAL ONE; -KETOROLAC TROMETHAMINE 30 MG/ML VIAL IV. STA; -LACTATED RINGER'S 1000ML 1,000 ML IV SCH; -LIDOCAINE HCL 2% 2 ML VIAL (20MG/ML) ONE; -MIDAZOLAM HCL 1 MG/ML 2ML VIAL ONE; -ONDANSETRON INJ 2 MG/ML 2 ML VIAL IV PRN; -ONDANSETRON INJ 2 MG/ML 2 ML VIAL ONE; -OXYCODONE/ACETAMINOPHEN 5-325 TAB PO PRN; -PROPOFOL IV EMULSION 10 MG/ML 20 ML VIAL IV ONE; -SODIUM CHLORIDE 0.9% 1000ML 1,000 ML IV SCH
--- NOTE | 2017-02-04 08:57 | DIAGNOSTIC IMAGING REPORT ---
KUB CLINICAL HISTORY: N20.0 Calculus of [id number] COMPARISON STUDY: 12/22/2016 FINDINGS: Interval placement of a left ureteral stent. No significant nephrocalcinosis by plain film criteria. Degenerative and postoperative changes of the lumbar spine. Nonobstructive bowel pattern. IMPRESSION: Left ureteral stent in good position. No significant nephrocalcinosis by routine imaging criteria The above report was generated using voice recognition software. It may contain grammatical, syntax or spelling errors. Electronically signed by: Christiano Ruiz M.D. 02/04/2017 8:56 AM Dictated Date/Time: 02/04/2017 8:54 AM
== END | disposition home or self-care (01) ==
LOC: C.RAD 08:32
PROVIDERS: ATTEND Urology
DX: N20.0 Calculus of kidney (principal)

== ENCOUNTER 2017-02-07 13:05 | Emergency (ER) | payer BC ==
[~2017-02-07] VITALS: Ht 185.4 cm; Wt 104.0 kg
[~2017-02-07 13:05] MED LIST changes: -FLM4 PO; -MELO7.5T5 PO; -OXYC1TAB3 PO; -PHEN-1043 PO
[2017-02-07 13:08] VITALS: TEMP 36.5; Ht 185.4 cm; Wt 104.0 kg
[2017-02-07] MEDS ORDERED: HYDROmorphone INJ 1 MG/ML SYR IV STA (13:31)
[2017-02-07] MEDS ORDERED: SODIUM CHLORIDE 0.9% 1000ML 1,000 ML IV STA (13:31)
[2017-02-07] MEDS ORDERED: ONDANSETRON INJ 2 MG/ML 2 ML VIAL IV STA (13:31)
[2017-02-07 13:48] LABS: BASO % 0.8 %; BASO ABS # 0.07 K/uL (0-0.2); EOS % 1.9 %; HEMATOCRIT 43.5 % (42-52); IG% 0.3 %; LYMPH % 32.4 %; LYMPH ABS # 2.92 K/uL (1.2-3.4); MEAN CORPUSCULAR HEMOGLOBIN 20.6 pg (25-34); MEAN CORPUSCULAR HGB CONC 31.7 g/dl (32-36); MEAN PLATELET VOLUME 10.1 fL (7.4-10.4); MONO % 8.6 %; PLATELET COUNT 280 K/uL (130-400); RED BLOOD COUNT 6.69 M/uL (4.7-6.1); WHITE BLOOD COUNT 9.02 K/uL (4.8-10.8)
[2017-02-07 14:06] LABS: BUN/CREATININE RATIO 14.7 (10-20); CALCIUM 9.1 mg/dl (8.5-10.1); CREATININE 1.1 mg/dl (0.60-1.40); POTASSIUM 3.8 mmol/L (3.5-5.1)
[2017-02-07] MEDS ORDERED: MELO7.5T5 PO (14:07)
[2017-02-07] MEDS ORDERED: FLM4 PO (14:07)
[2017-02-07] MEDS ORDERED: PHEN-1043 PO (14:07)
[2017-02-07 14:21] LABS: MANUAL MICROSCOPIC REQUIRED? YES; REVIEW REQ? NO; SULFASALICYLIC ACID POS (NEG); URINE APPEARANCE CLEAR (CLEAR); URINE COLOR ORANGE; URINE SPECIFIC GRAVITY 1.026 (1.000-1.030)
[2017-02-07 14:24] LABS: URINE BACTERIA 1+ (NEG); URINE RBC >30 /hpf (0-4)
[2017-02-07 14:26] LABS: ZZUR CULT IF INDIC CLEAN CATCH YES
--- NOTE | 2017-02-07 14:31 | DIAGNOSTIC IMAGING REPORT ---
ABDOMEN AND PELVIS CT WITHOUT CONTRAST CT DOSE: 744.75 mGy.cm HISTORY: Severe left lower quadrant abdominal pain. TECHNIQUE: Multiaxial CT images of the abdomen and pelvis were performed without contrast. A dose lowering technique was utilized adhering to the principles of ALARA. COMPARISON STUDY: KUB 02/04/2017. Outside hospital abdomen and pelvis CT 01/26/2017. FINDINGS: Mild elevation of the right hemidiaphragm, unchanged. Linear densities the right lower lobe consistent with subsegmental atelectasis. The left lung base is clear. Posterior decompression within the lumbar spine. Small fat-containing midline epigastric hernia. Small fat-containing bilateral inguinal hernias. A few diverticula within the duodenum. Surgical clips within the left side of the abdomen. A 9 mm hypodense lesion within the right hepatic dome. A 6 mm hypodense lesion within the left hepatic dome. These are too small to characterize. The unenhanced spleen, gallbladder, pancreas, and adrenal glands are unremarkable. There are few punctate stones within the right kidney. No right-sided hydronephrosis. Moderate left hydroureteronephrosis secondary to an obstructing 1 mm stone at the left ureterovesical junction. This is best seen on image 434. Mild bladder wall thickening which may be due to underdistention. No additional left renal calculi. The larger stone seen within the mid to distal left ureter on the prior study is no longer present. Suboptimal evaluation for bowel pathology due to the lack of intravenous and oral contrast. However, there is no definite bowel wall thickening or obstruction. Colonic diverticulosis. IMPRESSION: 1. A 1 mm obstructing stone within the left ureterovesical junction resulting and moderate left hydroureteronephrosis. This is new from the prior study. 2. Right-sided nephrolithiasis. No right-sided hydronephrosis. 3. Additional findings as described above. Electronically signed by: Silvestre Gregorio M.D. 02/07/2017 2:30 PM Dictated Date/Time: 02/07/2017 2:22 PM
[2017-02-07 14:52] LABS: COMPLETE YES; MICROCYTOSIS PRESENT; TEAR DROP CELLS 1+
[2017-02-07] MEDS ORDERED: CIPROFLOXACIN 500 MG TAB PO STA (14:55)
[2017-02-07] MEDS ORDERED: CIPR-255 PO (15:12)
[2017-02-07] MEDS ORDERED: OXYC1TAB3 PO (15:12)
[2017-02-07 15:15] VITALS: BP 119/83; PULSE 63; O2SAT 93
--- NOTE | 2017-02-07 20:04 | EMERGENCY ROOM VISIT NOTE ---
History Report prepared by Christine: Radhika Miller Under the Supervision of: Dr. Juan Daniel Goodwin D.O. First contact with patient: 13:17 Chief Complaint: FLANK PAIN Stated Complaint: LEFT FLANK PAIN/UNABLE TO URINATE History of Present Illness The patient is a 56 year old male who presents to the Emergency Room with complaints of persistent left flank pain that began several days ago. He currently rates his discomfort as a 10/10 in severity. The patient states that he has a history of kidney stones. He states that he had them five years ago, and then more recently in December. The patient states that on January 29 he had a lithotripsy done on his left kidney. He states that since then he has been experiencing pain and burning with urination. The patient's states that the patient has had difficulty urinating. The patient's states that the patient's stone was 7 mm and notes that he has been on Pyridium since . The patient denies any history of urinary retention. He states that his stent was taken out on Thursday. The patient states that he has been passing small blood clots recently, but denies any recent passing of blood clots. The patient reports nausea this morning. Pt denies headache, change in vision, fevers, chest pain, shortness of breath, vomiting, diarrhea, and melena. Source of History: patient, spouse/significant other () Onset: several days ago Position: other (left flank) Symptom Intensity: 10/10 Timing: other (persistent) Associated Symptoms: + nausea, + urinary symptoms (burning with urination, pain with urination, passing blood clots, difficulty urinating) Review of Systems See HPI for pertinent positives & negatives. A total of 10 systems reviewed and were otherwise negative. Past Medical & Surgical Medical Problems: (1) Bronchitis (2) Chronic back pain greater than 3 months duration (3) Depression (4) Diverticulitis (5) HTN (hypertension) (6) Hypothyroidism (7) Kidney stone (8) Psoriasis Surgical Problems: (1) History of appendectomy (2) History of back surgery Family History Diabetes mellitus FH: UT (myocardial infarction) FH: cancer Hypertension Social History Smoking Status: Former Smoker Alcohol Use: occasionally Marital Status: Housing Status: lives with significant other Occupation Status: employed Current/Historical Medications Scheduled Apremilast (Otezla), 30 MG PO BID Aspirin (Aspirin Ec), 81 MG PO QAM Atorvastatin (Lipitor), 10 MG PO QAM Bupropion Hcl (Bupropion Hcl Er), 150 MG PO QAM Calcitriol (Calcitriol), 1 CAP PO BID Cholecalciferol (Vitamin D-3), 5,000 UNIT PO QAM Ciprofloxacin Hcl (Cipro), 500 MG PO BID Duloxetine Hcl (Cymbalta), 1 CAP PO QAM Levothyroxine Sodium (Levothyroxine Sodium), 1 TAB PO QAM Lisinopril (Lisinopril), 10 MG PO QAM Metoprolol Succinate (Toprol Xl), 50 MG PO HS Phenazopyridine HCl (Phenazopyridine HCl), 200 MG PO TID Tamsulosin HCl (Tamsulosin HCl), 0.4 MG PO DAILY Testosterone (Androgel Pump), 40.5 MG TOP QPM Scheduled PRN Calcipotriene (Calcipotriene), 1 APPLN TOP for PSORIASIS Fluocinonide (Fluocinonide), 1 APPLN TOP for PSORIASIS Meloxicam (Mobic), 7.5 MG PO DAILY PRN for ARTHRITIS Oxycodone Immediate Rel Tab (Roxicodone Ir), 5 MG PO Q6H PRN for Pain Allergies Coded Allergies: No Known Allergies (Unverified , 02/07/17) Physical Exam Vital Signs Date Time Temp Pulse Resp B/P (MAP) Pulse Ox O2 Delivery O2 Flow Rate FiO2 02/07/17 15:15 63 18 119/83 93 Room Air 02/07/17 14:25 66 20 155/91 93 Room Air 02/07/17 13:08 36.5 106 20 157/95 96 Room Air Physical Exam GENERAL: alert, laying in bed, in significant distress, holding left flank. EYE EXAM: normal conjunctiva. OROPHARYNX: no exudate, no erythema, lips, buccal mucosa, and tongue normal and mucous membranes are moist NECK: supple, no nuchal rigidity, no adenopathy, non-tender LUNGS: Clear to auscultation. Normal chest wall mechanics HEART: no murmurs, S1 normal and S2 normal ABDOMEN: abdomen soft, minimal tenderness in left flank, normo-active bowel sounds, no masses, no rebound or guarding. BACK: Back is symmetrical on inspection and there is no deformity, no midline tenderness, no CVA tenderness. SKIN: no rashes and no bruising UPPER EXTREMITIES: upper extremities are grossly normal. LOWER EXTREMITIES: No pitting edema. NEURO EXAM: Normal sensorium, cranial nerves II-XII grossly intact, normal speech, no gross weakness of arms, no gross weakness of legs. Medical Decision & Procedures ER Provider Diagnostic Interpretation: Bedside ultrasound reveals a completely collapsed bladder. CT:Per my review, radiologist interpretation. ABDOMEN AND PELVIS CT WITHOUT CONTRAST CT DOSE: 744.75 mGy.cm HISTORY: Severe left lower quadrant abdominal pain. TECHNIQUE: Multiaxial CT images of the abdomen and pelvis were performed without contrast. A dose lowering technique was utilized adhering to the principles of ALARA. COMPARISON STUDY: KUB 02/04/2017. Outside hospital abdomen and pelvis CT 01/26/2017. FINDINGS: Mild elevation of the right hemidiaphragm, unchanged. Linear densities the right lower lobe consistent with subsegmental atelectasis. The left lung base is clear. Posterior decompression within the lumbar spine. Small fat-containing midline epigastric hernia. Small fat-containing bilateral inguinal hernias. A few diverticula within the duodenum. Surgical clips within the left side of the abdomen. A 9 mm hypodense lesion within the right hepatic dome. A 6 mm hypodense lesion within the left hepatic dome. These are too small to characterize. The unenhanced spleen, gallbladder, pancreas, and adrenal glands are unremarkable. There are few punctate stones within the right kidney. No right-sided hydronephrosis. Moderate left hydroureteronephrosis secondary to an obstructing 1 mm stone at the left ureterovesical junction. This is best seen on image 434. Mild bladder wall thickening which may be due to underdistention. No additional left renal calculi. The larger stone seen within the mid to distal left ureter on the prior study is no longer present. Suboptimal evaluation for bowel pathology due to the lack of intravenous and oral contrast. However, there is no definite bowel wall thickening or obstruction. Colonic diverticulosis. IMPRESSION: 1. A 1 mm obstructing stone within the left ureterovesical junction resulting and moderate left hydroureteronephrosis. This is new from the prior study. 2. Right-sided nephrolithiasis. No right-sided hydronephrosis. 3. Additional findings as described above. Electronically signed by: Silvestre Gregorio M.D. 02/07/2017 2:30 PM Dictated Date/Time: 02/07/2017 2:22 PM Laboratory Results 02/07/17 13:25 Red Blood Count 6.69, Mean Corpuscular Volume 65.0, Mean Corpuscular Hemoglobin 20.6, Mean Corpuscular Hemoglobin Concent 31.7, Mean Platelet Volume 10.1, Neutrophils (%) (Auto) 56.0, Lymphocytes (%) (Auto) 32.4, Monocytes (%) (Auto) 8.6, Eosinophils (%) (Auto) 1.9, Basophils (%) (Auto) 0.8, Neutrophils # (Auto) 5.05, Lymphocytes # (Auto) 2.92, Monocytes # (Auto) 0.78, Eosinophils # (Auto) 0.17, Basophils # (Auto) 0.07 02/07/17 13:25 Test 02/07/17 13:20 02/07/17 13:25 Urine Color ORANGE Urine Appearance CLEAR (CLEAR) Urine pH (4.5-7.5) Urine Specific [place] 1.026 (1.000-1.030) Urine Protein POS (NEG) Urine Glucose (UA) (NEG) Urine Ketones (NEG) Urine Occult Blood (NEG) Urine Nitrite (NEG) Urine Bilirubin (NEG) Urine Urobilinogen (NEG) Urine Leukocyte Esterase (NEG) Urine RBC >30 /hpf (0-4) Urine WBC 5-10 /hpf (0-5) Urine Epithelial Cells 5-10 /lpf (0-5) Urine Uric Acid Crystals PRESENT (NONE PRSENT) Urine Bacteria 1+ (NEG) White Blood Count 9.02 K/uL (4.8-10.8) Red Blood Count 6.69 M/uL (4.7-6.1) Hemoglobin 13.8 g/dL (14.0-18.0) Hematocrit 43.5 % (42-52) Mean Corpuscular Volume 65.0 fL (80-100) Mean Corpuscular Hemoglobin 20.6 pg (25-34) Mean Corpuscular Hemoglobin Concent 31.7 g/dl (32-36) Platelet Count 280 K/uL (130-400) Mean Platelet Volume 10.1 fL (7.4-10.4) Neutrophils (%) (Auto) 56.0 % Lymphocytes (%) (Auto) 32.4 % Monocytes (%) (Auto) 8.6 % Eosinophils (%) (Auto) 1.9 % Basophils (%) (Auto) 0.8 % Neutrophils # (Auto) 5.05 K/uL (1.4-6.5) Lymphocytes # (Auto) 2.92 K/uL (1.2-3.4) Monocytes # (Auto) 0.78 K/uL (0.11-0.59) Eosinophils # (Auto) 0.17 K/uL (0-0.5) Basophils # (Auto) 0.07 K/uL (0-0.2) RDW Standard Deviation 34.5 fL (36.4-46.3) RDW Coefficient of Variation 15.0 % (11.5-14.5) Immature Granulocyte % (Auto) 0.3 % Immature Granulocyte # (Auto) 0.03 K/uL (0.00-0.02) Microcytosis PRESENT Tear Drop Cells 1+ Anion Gap 6.0 mmol/L (3-11) Est Creatinine Clear Calc Drug Dose 92.7 ml/min Estimated GFR () 85.3 Estimated GFR (Non- 73.6 BUN/Creatinine Ratio 14.7 (10-20) Calcium Level 9.1 mg/dl (8.5-10.1) Total Bilirubin 0.7 mg/dl (0.2-1) Direct Bilirubin 0.2 mg/dl (0-0.2) Aspartate Amino Transf (AST/SGOT) 12 U/L (15-37) Alanine Aminotransferase (ALT/SGPT) 23 U/L (12-78) Alkaline Phosphatase 65 U/L (45-117) Total Protein 7.1 gm/dl (6.4-8.2) Albumin 3.9 gm/dl (3.4-5.0) Lipase 121 U/L (73-393) Medications Administered Medications (Trade) Dose Ordered Sig/Jeyson Route Start Time Stop Time Status Last Admin Dose Admin Sodium Chloride 1,000 ml @ 999 mls/hr Q1H1M STAT IV 02/07/17 13:31 02/07/17 14:31 DC 02/07/17 13:50 999 MLS/HR Ondansetron HCl (Zofran Inj) 4 mg NOW STAT IV 02/07/17 13:31 02/07/17 13:33 DC 02/07/17 13:50 4 MG Hydromorphone HCl (Dilaudid Inj) 1 mg NOW STAT IV 02/07/17 13:31 02/07/17 13:33 DC 02/07/17 13:50 1 MG Ciprofloxacin (Cipro Tab) 500 mg NOW STAT PO 02/07/17 14:55 02/07/17 14:57 DC 02/07/17 15:26 500 MG ED Course ED COURSE: Vital signs were reviewed and showed tachycardic and hypertensive The patients medical record was reviewed The above diagnostic studies were performed and reviewed. ED treatments and interventions as stated above. 1322: The patient was evaluated in room A2. A complete history and physical examination was performed. 1331: Ordered Dilaudid Inj 1 mg IV, Zofran Inj 4 mg IV, Sodium Chloride 1000 ml @ 999 mls/hr IV. 1449: I reevaluated the patient and he is feeling much better. 1454: I discussed the patients case with Dr. Rodriguez, Urology. I reviewed the UA with him. He states that the patient should be placed on 3 days of Cipro and follow up. He believes that it is likely a contaminant. 1455: Ordered Cipro Tab 500 mg PO. 1502: Upon reevaluation, the patient is resting comfortably.I discussed my findings with the patient and he understands and agrees with the treatment plan. Based on the patients age, coexisting illnesses, exam and lab findings the decision to treat as an outpatient was made. The patient remained stable while under my care. The patient appeared well at the time of discharge. Medical Decision Differential diagnoses includes but is not limited to gastritis, peptic ulcer disease, GERD, gallbladder disease, pancreatitis, small bowel obstruction, acute coronary syndrome, pericarditis, ischemic bowel, irritable bowel disease, irritable bowel syndrome, appendicitis, diverticulitis, malignancy, hernia, urinary tract infection, torsion, perforation, trauma, infectious. Patient is a 56-year-old male who presents the ER for severe left flank pain/ left lower quadrant abdominal pain which has been going on for the past several days. Patient had a lithotripsy in early January and his stent removed on Thursday. He notes he has had this pain since then. CBC along with BMP, LFTs , bilirubin and lipase were unremarkable. Urine was orange secondary to Pyridium and consequently difficult to evaluate. There were 5-10 white cells and +1 bacteria along with epithelial cells. Discussed with urology as CT showed 1 mm left distal ureteral stone. I do favor this to cause of symptoms. They recommended Cipro and following up as an outpatient. I did feel this is reasonable as there is no fevers, leukocytosis or signs of infection. Favor UA is contaminated. Discussed with Pt concerning signs and symptoms to watch out for. Pt was instructed to follow up with their PCP and discussed with the patient their option to return to the ED at anytime for persistent or worsening symptoms. The appropriate anticipatory guidance and out-patient management, including indications for return to the emergency department, were explained at length to the patient and understood. [place] Drug Monitoring Program Search Results: patient reviewed within database, see additional documentation Drug Monitoring Findings: The patient recently had 2 narcotic prescriptions. Medication Reconcilliation Current Medication List: was personally reviewed by me Blood Pressure Screening Patient's blood pressure: Elevated blood pressure Blood pressure disposition: Elevated BP felt to be situational, Did not require urgent referral Consults Time Called: [id number] Consulting Physician: Dr. Rodriguez, Urology Returned Call: [phone] I discussed the patients case with Dr. Rodriguez, Urology. I reviewed the UA with him. He states that the patient should be placed on 3 days of Cipro and follow up. He believes that it is likely a contaminant. Impression Primary Impression: Left flank pain Scribe Attestation The scribe's documentation has been prepared under my direction and personally reviewed by me in its entirety. I confirm that the note above accurately reflects all work, treatment, procedures, and medical decision making performed by me. Departure Information Dispostion Home / Self-Care Prescriptions Ciprofloxacin Hcl (CIPRO) 500 Mg Tab 500 MG PO BID, #6 TAB Prov: Juan Daniel Goodwin, DO 02/07/17 Oxycodone Immediate Rel Tab (ROXICODONE IR) 5 Mg Tab 5 MG PO Q6H Y for Pain, #14 TAB Prov: Juan Daniel Goodwin, DO 02/07/17 Referrals No Doctor, Assigned (PCP) Lisa Faulkner M.D. Forms HOME CARE DOCUMENTATION FORM, IMPORTANT VISIT INFORMATION Patient Instructions Kidney Stones Eval, My [facility] Additional Instructions Please follow up with your primary care doctor or if you are a student, [facility] with in the next 24 hours. Any worsening of your symptoms, please return to the ED immediately. This includes any fevers greater than 100.4, worsening pain, chest pain, shortness breath, persistent nausea, vomiting, unable to eat or drink, or any other concerning signs or symptoms from your standpoint. You were given medications during this visit that will inhibit your ability to drive, operate machinery and work. Please do NOT drive, operate machinery or work for the next 12hrs. You were also given a prescription for a narcotic. While taking this medication you should also not drive, operate machinery and or work. You were found to have a blood pressure greater than 120 systolic over 90 diastolic. Due to the new Medicare guidelines, we are now recommending that you follow up with your primary care doctor in regards to this elevated blood pressure. Please take antibiotic as prescribed.
== END 2017-02-07 15:27 | disposition home or self-care (01) ==
LOC: C.EDB 13:07 → C.EDA 15:27
DX: R10.9 Unspecified abdominal pain (principal); F32.9 Major depressive disorder, single episode, unspecified; K57.92 Diverticulitis of intestine, part unspecified, without perforation or abscess without bleeding; I10 Essential (primary) hypertension; E03.9 Hypothyroidism, unspecified; L40.9 Psoriasis, unspecified; Z83.3 Family history of diabetes mellitus; Z82.49 Family history of ischemic heart disease and other diseases of the circulatory system; Z87.891 Personal history of nicotine dependence; Z79.82 Long term (current) use of aspirin

== ENCOUNTER → 2017-02-18 | Outpatient (CLI) | payer BC ==
[~2017-02-18] MED LIST changes: -DICLOFENAC GEL TOP; +FLM4 PO; +MELO7.5T5 PO; -MYCO500T5 PO; -OXYC-57 PO; +OXYC1TAB3 PO; +PHEN-1043 PO; -PHEN-775 PO; -TAMS0.4C38 PO
--- NOTE | 2017-02-18 14:03 | DIAGNOSTIC IMAGING REPORT ---
KUB HISTORY: N20.0 Nephrolithiasis. Follow-up study. COMPARISON: CT abdomen and pelvis 02/07/2017, KUB 02/04/2017 FINDINGS: The bowel gas pattern is non-obstructive. There is no organomegaly. The previously noted right-sided nephrolithiasis is not clearly seen secondary to obscuring bowel gas. The previously noted 1 mm calculus of the left ureterovesicular junction is not definitely seen. There are multiple phleboliths present within the pelvis no new ureteral calculi are identified. Surgical clips are seen within the pelvis and left hemiabdomen.. No pneumoperitoneum or pneumatosis. No fracture. There are postsurgical changes of the lower lumbar spine. IMPRESSION: 1. Right renal calculi are obscured by overlying bowel gas. 2. Previously noted 1 mm calculus of the distal left ureter is not definitely seen. There are multiple phleboliths present within the pelvis. 3. No new ureteral calculi identified. Electronically signed by: Joey Morlaes M.D. 02/18/2017 2:01 PM Dictated Date/Time: 02/18/2017 1:57 PM
== END | disposition home or self-care (01) ==
LOC: C.RAD 13:39
PROVIDERS: ATTEND Nurse Practitioner Family
DX: N20.0 Calculus of kidney (principal)

== ENCOUNTER → 2017-08-14 | Outpatient (CLI) | payer OTHER ==
[~2017-08-14] MED LIST changes: +ATOR10TA82 PO; -ATOR10TA88 PO; -BUPR-267 PO; +BUPR-79 PO; +CALC0.5C PO; -CALC0.5C17 PO; -CHOL200027 PO; -CIPR-255 PO; -FLM4 PO; -LDXCR60 TOP; +METO-452 PO; -METO1TAB66 PO; -OXYC1TAB3 PO; -PHEN-1043 PO
[2017-08-14 12:47] LABS: BASO % 0.7 %; BASO ABS # 0.07 K/uL (0-0.2); EOS % 1.9 %; EOS ABS # 0.19 K/uL (0-0.5); HEMATOCRIT 42.8 % (42-52); HEMOGLOBIN 13.6 g/dL (14.0-18.0); IG# 0.04 K/uL (0.00-0.02); LYMPH % 29.6 %; LYMPH ABS # 2.92 K/uL (1.2-3.4); MEAN CELL VOLUME 65.1 fL (80-100); MEAN CORPUSCULAR HEMOGLOBIN 20.7 pg (25-34); MEAN CORPUSCULAR HGB CONC 31.8 g/dl (32-36); MEAN PLATELET VOLUME 10.1 fL (7.4-10.4); MONO % 7.3 %; MONO ABS # 0.72 K/uL (0.11-0.59); NEUT % 60.1 %; NEUT ABS # 5.92 K/uL (1.4-6.5); PLATELET COUNT 245 K/uL (130-400); RED CELL DISTRIBUTION WIDTH CV 15.6 % (11.5-14.5); WHITE BLOOD COUNT 9.86 K/uL (4.8-10.8)
[2017-08-14 13:31] LABS: ALBUMIN 3.7 gm/dl (3.4-5.0); ALT/SGPT 35 U/L (12-78); AST/SGOT 17 U/L (15-37); BLOOD UREA NITROGEN 13 mg/dl (7-18); CALCIUM 8.7 mg/dl (8.5-10.1); CARBON DIOXIDE 26 mmol/L (21-32); CREATININE 0.96 mg/dl (0.60-1.40); GLUCOSE 89 mg/dl (70-99); POTASSIUM 4.1 mmol/L (3.5-5.1); SODIUM 141 mmol/L (136-145)
[2017-08-14 13:40] LABS: ALKALINE PHOSPHATASE 59 U/L (45-117); CHOLESTEROL 150 mg/dl (0-200); LDL CHOLESTEROL CALCULATED 90 mg/dl; TOTAL PROTEIN 6.9 gm/dl (6.4-8.2)
== END | disposition home or self-care (01) ==
LOC: C.LABMFLN 09:00
PROVIDERS: ATTEND Family Medicine
DX: E34.9 Endocrine disorder, unspecified (principal); M85.80 Other specified disorders of bone density and structure, unspecified site; I10 Essential (primary) hypertension; E78.5 Hyperlipidemia, unspecified; E03.9 Hypothyroidism, unspecified; Z12.5 Encounter for screening for malignant neoplasm of prostate

== ENCOUNTER 2025-03-13 09:05 | Inpatient (IN) ==
--- NOTE | 2025-03-13 09:21 | Emergency Department Note ---
Impression & Plan Chest pain, NASSAR (dyspnea on exertion) ED Provider Note NAME: MARJ LOPEZ AGE: 64 SEX: M : 1960 ARRIVES VIA: Walk-In INFORMANT: Patient, ED PROVIDER(S): Bala Strong DO CHIEF COMPLAINT: HPI: The patient is a 64-year-old male who presented to the emergency department for an evaluation of shortness of breath. The patient states that he has been having symptoms over the last week or so. He was seen in our facility recently for similar complaints. He was noted to have fluid around his lungs. The patient did call his primary glass forming engineer. He was advised to increase his Lasix. The patient also has been having intermittent episodes of chest pain. The patient denies having any leg swelling but does complain of difficulty breathing with lying flat. The patient denies having any rectal bleeding. He is been compliant with his outpatient medications which does include an oral anticoagulant because of a history of atrial fibrillation. ROS: See above HPI for pertinent positives & negatives. A total of 10 systems reviewed and were otherwise negative. PAST MEDICAL HISTORY: See Below PAST SURGICAL HISTORY: See Below FAMILY HISTORY: See Below SOCIAL HISTORY: See Below HOME MEDICATIONS: See Below ALLERGIES: See Below VITALS: See Below PHYSICAL EXAMINATION: GENERAL: The patient is awake and alert. He is somewhat anxious appearing. EYES: The conjunctivae are clear. The pupils are round and reactive. EARS, NOSE, MOUTH AND THROAT: The nose is without any evidence of any deformity. Clear rhinorrhea was noted bilaterally. NECK: The neck is nontender and supple. RESPIRATORY: Diminished breath sounds are noted throughout with expiratory wheezing. There is mild conversational dyspnea. CARDIOVASCULAR: Regular rate and rhythm noted there no murmurs rubs or gallops normal S1 normal S2. GASTROINTESTINAL: The abdomen is soft. Abdomen is nontender. MUSCULOSKELETAL/EXTREMITIES: There is no evidence of gross deformity full range of motion is noted in the hips and shoulders. SKIN: There is no obvious evidence of any rash. There are no petechiae, pallor or cyanosis noted. NEUROLOGIC: Patient is awake alert and oriented x3 MEDICAL DECISION MAKING: The patient is a 64-year-old male who presented to the emergency department at the request of his primary glass forming engineer for an evaluation of shortness of breath and chest pain. The patient was experiencing symptoms over the last few weeks. The patient became worse especially over the last 24 hours. I discussed the patient's laboratory and radiographic studies with him. The patient was not tachycardic. The patient does take oral anticoagulants. Given his risk factors I do not feel the patient would be a good candidate for outpatient workup for this condition. For this reason I discussed his condition with the on-call [facility] hospitalist. They have agreed to evaluate the patient in the emergency department for further management and disposition. Triage Nursing notes reviewed. Prior medical records reviewed Vital Signs: reviewed and remarkable for no significant abnormalities Differential diagnosis: Reactive airway disease, pneumonia, pneumothorax, COPD, CHF, infections, cardiac ischemia, pulmonary embolism, musculoskeletal, gastrointestinal, as well as other pathologies. ER treatment provided: See below Diagnostics interpreted by me: ECG: EKG was obtained in the emergency department. My interpretation is normal sinus rhythm at 72 bpm. There is no ectopy. There is no acute ST segment abnormalities noted. This was compared to a tracing from August 16, 2024. No changes were noted. Cardiac Monitoring: An order was placed for continuous cardiac monitoring. The monitor shows a rate of 77 bpm with sinus rhythm. Laboratory studies: As stated above and show below. Imaging studies: See below. Radiographic imaging was reviewed by myself Consultation(s): I discussed this case with Dr. Nicholas who is on-call for the [facility] hospitalist group. 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 Sleep apnea cpap Coronary artery calcification not that pt aware of Renal mass not that pt aware of Thalassemia denies current or hx Depression denies depression, verifies bipolar dx. Bipolar disorder Kidney stones Hyperlipidemia HTN (hypertension) Paroxysmal A-fib dx approx 2022/no recent issues per pt/no hx cardioversion. History of diverticulitis entered into EMR 2013 Chronic right sacroiliac joint pain Barber's thyroiditis Metabolic syndrome Obesity Pre-diabetes Myofascial pain Lumbar facet joint syndrome Surgical History History of right inguinal hernia repair History of lumbar surgery x3 total/hx hardware and removal, only thing in there now is a cage per pt S/P colon resection H/O colonoscopy 08/05/22 repeat 5yrs History of appendectomy Family History Father Malignant neoplasm of testis Cardiac disorder Prostate cancer Hypertension Cancer Coronary heart disease, Onset Age: 54 smoker Myocardial infarction Unknown Cardiac disorder Grandfather Cancer Denies family history of Diabetes Deep vein thrombosis Dyslipidemia Lung cancer Pulmonary embolism Social History Smoking Status: Never smoker Tobacco Type: Cigarettes Age Started Using Tobacco: 15; Age Quit Using Tobacco: 32; packs per day: 1; Cigarettes Per Day: 20/day; Second Hand Exposure: No; Do You Dip or Chew Tobacco: No; Hx Alcohol Use: No Hx Substance Use: No Preferred Language: Bulgarian Communication Ability: Effective Visual Impairment: No Limitations Hearing Ability: Normal Family Literacy Coordinator Required: No Beliefs That Will Affect Care: None marital status: Current Living Situation: Spouse Current Living Situation Comment: and dog current occupational status: retired 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 How many Children do You have: 2 Feels Safe at Home: Yes Diet: regular during the past year weight has: remained stable Assistive Devices: CPAP and Glasses Allergies Allergies Allergy/AdvReac Type Severity Reaction Status Date / Time No Known Allergies Allergy Verified 01/20/25 10:02 Home Meds Home Medications Medication Instructions Recorded Confirmed cholecalciferol (vitamin D3) 125 1,000 units PO PM 03/31/22 03/13/25 mcg (5,000 unit) tablet Medical Marijuana Card 1 dose UD PRN Back Pain 12/23/24 03/13/25 furosemide 20 mg tablet (Lasix) 20 mg PO UD PRN edema 12/23/24 03/13/25 lisinopril 20 mg tablet 20 mg PO QAM 12/23/24 03/13/25 tadalafil 20 mg tablet 20 mg PO UD PRN sexual activity 12/23/24 03/13/25 aripiprazole 5 mg tablet (Abilify) 10 mg PO PM 01/20/25 03/13/25 ascorbic acid (vitamin C) 500 mg 500 mg PO PM 03/13/25 03/13/25 tablet (Vitamin C) cyanocobalamin (vitamin B-12) 500 0 mcg PO QAM 03/13/25 03/13/25 mcg tablet pregabalin 50 mg capsule 50 mg PO TID 03/13/25 03/13/25 testosterone 2 pump topical DAILY 03/13/25 03/13/25 zinc 50 mg tablet 50 mg PO PM 03/13/25 03/13/25 Previous Rx's Medication Instructions Recorded bupropion HCl 150 mg tablet,12 hr 150 mg PO QAM #90 ea 12/29/23 sustained-release (Wellbutrin SR) levothyroxine 125 mcg tablet 125 mcg PO QAM #90 tabs 01/01/24 apixaban 5 mg tablet (Eliquis) 5 mg PO BID #180 tabs 04/26/24 atorvastatin 10 mg tablet (Lipitor) 10 mg PO QAM #90 tabs 09/13/24 metoprolol succinate 50 mg 50 mg PO HS #90 tabs 09/13/24 tablet,extended release 24 hr (Toprol XL) calcitriol 0.5 mcg capsule 0.5 mcg PO BID #180 caps 09/22/24 tamsulosin 0.4 mg capsule 0.4 mg PO QAM #90 caps 02/06/25 Results & Data (ED) Vital Signs Vital Signs - 24 hr 03/13/25 09:09 03/13/25 09:45 03/13/25 09:45 Temperature 36.1 C L Temperature Source Temporal Artery Scan Pulse Rate 76 Pulse Rate [Apical] Pulse Rhythm Pulse Rhythm [Apical] Pulse Strength [Apical] Respiratory Rate 26 H Respiratory Effort / Characteristics Short of Breath Spontaneous Labored Respiratory Depth Shallow Respiratory Pattern Regular Rapid/Shallow Regular Blood Pressure 141/88 H Blood Pressure [Right Arm] Blood Pressure Mean 105 Blood Pressure Mean [Right Arm] Blood Pressure Position [Right Arm] Pulse Oximetry 94 94 Oxygen Delivery Method Room Air Nasal Cannula Nasal Cannula Oxygen Flow Rate 2 2 Sepsis Recent Fever Within 48 Hours No Sepsis New/Unexplained Change in Mental Status N/A Sepsis Action Taken by Nursing No Action Required 03/13/25 09:45 03/13/25 09:49 03/13/25 10:00 Temperature Temperature Source Pulse Rate 68 75 Pulse Rate [Apical] 68 Pulse Rhythm Regular Pulse Rhythm [Apical] Regular Pulse Strength [Apical] Normal Respiratory Rate 25 H 25 H Respiratory Effort / Characteristics Labored Respiratory Depth Normal Respiratory Pattern Regular Blood Pressure Blood Pressure [Right Arm] 160/106 H Blood Pressure Mean Blood Pressure Mean [Right Arm] 124 Blood Pressure Position [Right Arm] Sitting Pulse Oximetry 95 96 Oxygen Delivery Method Nasal Cannula Nasal Cannula Oxygen Flow Rate 2 2 Sepsis Recent Fever Within 48 Hours Sepsis New/Unexplained Change in Mental Status Sepsis Action Taken by Nursing 03/13/25 12:00 Temperature Temperature Source Pulse Rate Pulse Rate [Apical] 64 Pulse Rhythm Pulse Rhythm [Apical] Regular Pulse Strength [Apical] Normal Respiratory Rate 17 Respiratory Effort / Characteristics Spontaneous Labored Respiratory Depth Normal Respiratory Pattern Regular Blood Pressure Blood Pressure [Right Arm] 116/72 Blood Pressure Mean Blood Pressure Mean [Right Arm] 86 Blood Pressure Position [Right Arm] Sitting Pulse Oximetry 95 Oxygen Delivery Method Room Air Nasal Cannula Oxygen Flow Rate 2 Sepsis Recent Fever Within 48 Hours Sepsis New/Unexplained Change in Mental Status Sepsis Action Taken by [facility] Medications Current Medication List: was personally reviewed by me Laboratory Data Attestation: I reviewed the patient's lab results. 03/13/25 09:35 03/13/25 09:35 Lab Results 03/13/25 03/13/25 03/13/25 Range/Units 09:35 11:05 11:40 WBC 11.10 H (4.8-10.8) K/ul RBC 6.14 H (4.70-6.10) M/uL Hgb 12.6 L (14.0-18.0) g/dl Hct 41.6 L (42.0-52.0) % MCV 67.8 L (80.0-100.0) fL MCH 20.5 L (25.0-34.0) pg MCHC 30.3 L (32.0-36.0) g/dL RDW Std Deviation 36.6 (36.4-46.3) fL RDW Coeff of Robby 17.2 H (11.5-14.5) % Plt Count 228 (130-400) K/uL MPV 10.5 (9.4-12.4) fL Immature Gran % (Auto) 0.6 % Neut % (Auto) 69.2 % Lymph % (Auto) 19.2 % Lucas % (Auto) 8.9 % Eos % (Auto) 1.4 % Baso % (Auto) 0.7 % Neut # (Auto) 7.68 H (1.40-6.50) K/uL Lymph # (Auto) 2.13 (1.20-3.40) K/uL Lucas # (Auto) 0.99 H (0.11-0.59) K/uL Eos # (Auto) 0.15 (0.00-0.50) K/uL Baso # (Auto) 0.08 (0.00-0.20) K/uL Immature Gran # (Auto) 0.07 (0.01-0.20) K/uL Polychromasia 1+ Hypochromasia Present Microcytosis Present Tear Drop Cells 2+ Ovalocytes 1+ PT 10.6 (9.0-12.0) Seconds INR 1.0 (0.9-1.1) APTT 27 (21-31) Seconds PTT Ratio 1.0 VBG pH 7.34 L (7.36-7.41) VBG pCO2 62 H (38-50) mmHg VBG pO2 38 mmHg VBG HCO3 33 mmol/L VBG O2 Saturation < 60.0 % VBG Base Excess 5.7 mEq/L Sodium 141 (136-145) mmol/L Potassium 4.5 (3.5-5.1) mmol/L Chloride 106 (98-107) mmol/L Carbon Dioxide 30 (21-32) mmol/L Anion Gap 5 (3-11) BUN 23 (6-23) mg/dl Creatinine 1.12 (0.6-1.4) mg/dl Est Cr Clr Drug Dosing 88.3 ml/min eGFR 72.45 BUN/Creatinine Ratio 20.5 H (10-20) Glucose 119 H (70-99(Fasting)) mg/dl Calcium 9.8 (8.6-10.3) mg/dl Magnesium 2.1 (1.7-2.4) mg/dl Total Bilirubin 0.6 (0.2-1.0) mg/dl AST 14 (13-39) U/L ALT 19 (7-52) U/L Alkaline Phosphatase 60 (34-104) U/L Troponin I High Sens 3.3 (0-20) pg/ml B-Natriuretic Peptide 83 (0-100) pg/ml Total Protein 6.9 (6.0-8.3) gm/dl Albumin 4.2 (3.4-5.0) gm/dl Globulin 2.7 (2.5-4.0) gm/dl Albumin/Globulin Ratio 1.6 (0.9-2) Urine Color Yellow Urine Appearance Clear (Clear) Urine pH 5.5 (4.5-7.5) Ur Specific [place] 1.019 (1.000-1.030) Urine Protein Negative (Negative) Urine Glucose (UA) Negative (Negative) Urine Ketones Negative (Negative) Urine Blood Trace H (Negative) Urine Nitrite Negative (Negative) Urine Bilirubin Negative (Negative) Urine Urobilinogen Negative (Negative) Ur Leukocyte Esterase Trace H (Negative) Urine WBC (Auto) 0-5 (0-5) /hpf Urine RBC (Auto) 6-10 H (0-2) /hpf U Hyaline Cast (Auto) 0-2 (0-2) /lpf U Epithel Cells (Auto) 0-2 (0-2) /hpf Urine Bacteria (Auto) None Seen (None Seen) Urine Comment SARS-CoV-2 (PCR) NEGATIVE (Negative) Influenza Type A (PCR) Negative (Neg) Influenza Type B (PCR) Negative (Neg) RSV (RT-PCR) Negative (Neg) Administered Medications Heparin Sodium/Dextrose (Heparin 69929 Unit/500 Ml D5w) 25,000 units in 500 mls @ 20 mls/hr IV .Q24H [facility]; Protocol Stop: 04/12/25 13:14 Last Admin: 03/13/25 13:52 Dose: 1,000 units/hr, 20 mls/hr Documented By: MILAGRO Co-signed By: NANCY Rosuvastatin Calcium (Rosuvastatin Calcium 10 Mg Tab) 10 mg PO QAM [facility] Stop: 04/12/25 12:44 Last Admin: 03/13/25 13:08 Dose: 10 mg Documented By: NANCY Discontinued Medications Furosemide (Furosemide Inj 20 Mg/2 Ml Vial) 20 mg IV ONE ONE Stop: 03/13/25 12:57 Last Admin: 03/13/25 14:50 Dose: 20 mg Documented By: zoe Heparin Sodium/Dextrose (Heparin Iv Adult Wt-Based Low-Dose *No* Initial Bolus Protocol) 1 each IV ONE STA; Protocol Stop: 03/13/25 12:55 Last Admin: 03/13/25 13:28 Dose: Not Given Documented By: MILAGRO Ceftriaxone Sodium (Rocephin) 2,000 mg in 50 mls @ 100 mls/hr IV NOW ONE Stop: 03/13/25 13:44 Last Admin: 03/13/25 14:56 Dose: 100 mls/hr Documented By: zoe Metoprolol Tartrate (Metoprolol Tartrate 25 Mg Tab) 12.5 mg PO ONCE ONE Stop: 03/13/25 12:39 Last Admin: 03/13/25 13:08 Dose: 12.5 mg Documented By: NANCY Imaging Data Attestation: I personally reviewed and interpreted this imaging study as follows: My Impression: 1 view chest x-ray was obtained in the emergency department. My interpretation is no free air or definite infiltrate, final report below. Radiologist's Impression: Chest X-Ray 03/13/25 09:13 XR chest 1V portable CLINICAL HISTORY: Dyspnea COMPARISON STUDY: 08/16/2024 FINDINGS: There is stable moderate elevation of the right hemidiaphragm. There is no consolidation or pleural effusion. No pneumothorax. Heart size and pulmonary vasculature are normal. There is a 2 cm oval density at the right hilum/perihilar region. IMPRESSION: 1. No acute findings. 2. Right hilar density could represent artifact from pulmonary vasculature or enlarged lymph node or pulmonary nodule. Follow-up chest CT suggested. ACT 112: Positive. There are findings on this exam that require communication between the performing entity and the patient following Patient Test Result Information Act ([place] Act 112) guidelines. Electronically signed by: Sim Eduardo M.D. 03/13/2025 9:50 AM Discharge Plan Visit Data Chief Complaint: Shortness of Breath/Dyspnea Stated Complaint: SOB, LOW O2 ED Provider: Bala Strong Discharge Problem: Chest pain, NASSAR (dyspnea on exertion) Patient Disposition: Admitted As Inpatient Condition: Fair Discharge Instructions Interventions: ED Discharge Assessment Last Done: 03/13/25 13:11
--- NOTE | 2025-03-13 09:51 | XRay Report ---
XR chest 1V portable CLINICAL HISTORY: Dyspnea COMPARISON STUDY: 08/16/2024 FINDINGS: There is stable moderate elevation of the right hemidiaphragm. There is no consolidation or pleural effusion. No pneumothorax. Heart size and pulmonary vasculature are normal. There is a 2 cm oval density at the right hilum/perihilar region. IMPRESSION: 1. No acute findings. 2. Right hilar density could represent artifact from pulmonary vasculature or enlarged lymph node or pulmonary nodule. Follow-up chest CT suggested. ACT 112: Positive. There are findings on this exam that require communication between the performing entity and the patient following Patient Test Result Information Act ([place] Act 112) guidelines. Electronically signed by: Sim Eduardo M.D. 03/13/2025 9:50 AM
[2025-03-13 10:01] LABS: Hematocrit (blood only) 41.6 % (42.0-52.0); Hemoglobin 12.6 g/dl (14.0-18.0); Immature Granulocytes # (auto) 0.07 K/uL (0.01-0.20); Immature Granulocytes % (auto) 0.6 %; Mean Corpuscular Hemoglobin 20.5 pg (25.0-34.0); Mean Corpuscular Volume 67.8 fL (80.0-100.0); RDW Standard Deviation 36.6 fL (36.4-46.3); Red Blood Count 6.14 M/uL (4.70-6.10); White Blood Count 11.10 K/ul (4.8-10.8)
[2025-03-13 10:09] LABS: Platelet Count 228 K/uL (130-400)
[2025-03-13 10:18] LABS: Alanine Aminotransferase 19.0 U/L (7-52); Albumin Globulin Ratio 1.6 (0.9-2); Alkaline Phosphatase 60.0 U/L (34-104); Anion Gap 5.0 (3-11); Bilirubin,Total 0.6 mg/dl (0.2-1.0); Blood Urea Nitrogen 23.0 mg/dl (6-23); Calcium 9.8 mg/dl (8.6-10.3); Carbon Dioxide 30.0 mmol/L (21-32); Chloride 106.0 mmol/L (98-107); Creatinine Clr Calc Pharmacy 88.3 ml/min; Globulin 2.7 gm/dl (2.5-4.0); Glucose 119.0 mg/dl (70-99(Fasting)); Magnesium 2.1 mg/dl (1.7-2.4); Potassium 4.5 mmol/L (3.5-5.1); Sodium 141.0 mmol/L (136-145); Total Protein 6.9 gm/dl (6.0-8.3)
[2025-03-13 10:22] LABS: Hypochromasia Present; Microcytosis Present; Ovalocytes 1+; Polychromasia 1+; Tear Drop Cells 2+
[2025-03-13 10:33] LABS: INR 1.0 (0.9-1.1); Partial Thromboplastin Time 27 Seconds (21-31); Prothrombin Time 10.6 Seconds (9.0-12.0)
[2025-03-13 11:01] LABS: Influenza A virus by PCR Negative (Neg); Influenza B virus by PCR Negative (Neg); SARS CoV2 RNA(COVID-19) Ceph NEGATIVE (Negative)
[2025-03-13 11:26] LABS: Base Excess VBG 5.7 mEq/L; HCO3 VBG 33 mmol/L; Oxygen Saturation VBG < 60.0 %; PCO2 VBG 62 mmHg (38-50); PO2 VBG 38 mmHg; pH VBG 7.34 (7.36-7.41)
[2025-03-13 12:14] LABS: Appearance Urine Clear (Clear); Bacteria Urine Automated None Seen (None Seen); Cast Urine Automated 0-2 /lpf (0-2); Epithelial Cell Urine Auto 0-2 /hpf (0-2); Glucose Urine UA Negative (Negative); WBC Urine Automated 0-5 /hpf (0-5)
--- NOTE | 2025-03-13 12:53 | History & Physical Report ---
Date of Service March 13, 2025 Assessment & Plan (1) Unstable angina: Plan: Mr Albaro Preston is a 64 yo male with PMH of A-fib on eliquis, BPH, hypothyroidism, bipolar, renal mass, family hx of premature cAD, he's take taladafil for erectile dysfunction He's last take eliquis on Thursday morning (03/13) since december 2024; been having worsening exertional chest pain and shortness of breath. his also mentioned he's has worsening wheezing. as time process, he also found to has resting chest pain and came out our ED for evauation, he's was found to has hypoxic and started on 2 liter oxygen. his WBC is elevated at 11-12, and will be admitted to medicine services for unstable angina and acute respiratory failure 1 unstable angina 2. acute respiratory failure 3. hx of A-fib on eliquis 4. hx of erectile dysfunction on talafail 5. hx of renal mass 6. bipolar disorder 7. BPH 8. family hx of premature CAD 1. unstable angina symptom started since December 2024, normally half block exericse tolerance plan to increased metoprolol dosage from 50mg to 75mg allow for washout of talafail echo, cardiology to evaluate him high dose statin, crestor 20mg, aspirin hold eliquis, heparin ACS dose 2. acute respiratory failure ceftriaxone, oxygen duoneb, mucinex 3. hx of A-fib he's take eliquis 5mg and he's on metoprolol XL 50mg lisinopril 20mg and lasix 20mg daily 4. mood disorder, bipolar, he's on abilify 5mg and cymbalta 60mg and wellbutrin substain release 150mg daily 5. hypothyroidism-levothyroxine 125 mcg 6. BPH-flomax 0.4mg 7. erectile dysfunction, tadalafil 20mg PRN (2) Acute respiratory failure: History of Present Illness Chief Complaint: worsening chest pain acute hypoxic respiratory failure Primary Care Provider: Angelique Bowman MD Mr. Albaro Preston is a 64 yo male with PMH of A-fib on eliquis, hypertension, BPHdiverticulitis s/p colon resection he's take talafil for erectile dysfunction. he has family hx of premature CAD. he has renal mass and being evaluated by [facility] his baseline exercise tolerance is half a block since December 2024, he been having worsening exertional chest pain and shortness of breath, he's will walk several steps and started noticing chest pain and shortness of breath pain can last between 15 minutes to 1 hours. he's is now having resting chest discomfort. on Thursday (mar 13, 2025), he's presented to our ED for chest pain, worsening shortness of breath he's was found to be hypoxic on oxygen. given that he's has resting chest pain, he was admitted for medicine services for unstable angina, acute respiratory failure he will ACS dose, up-titrate of metoprolol he last took his elqiuis on 03/13/2025 morning Allergies Allergy/AdvReac Type Severity Reaction Status Date / Time No Known Allergies Allergy Verified 01/20/25 10:02 Home Medications Medication Instructions Recorded Confirmed Type cholecalciferol (vitamin D3) 125 1,000 units PO PM 03/31/22 03/13/25 History mcg (5,000 unit) tablet bupropion HCl 150 mg tablet,12 hr 150 mg PO QAM #90 ea 12/29/23 03/13/25 Rx sustained-release (Wellbutrin SR) levothyroxine 125 mcg tablet 125 mcg PO QAM #90 tabs 01/01/24 03/13/25 Rx apixaban 5 mg tablet (Eliquis) 5 mg PO BID #180 tabs 04/26/24 03/13/25 Rx atorvastatin 10 mg tablet (Lipitor) 10 mg PO QAM #90 tabs 09/13/24 03/13/25 Rx metoprolol succinate 50 mg 50 mg PO HS #90 tabs 09/13/24 03/13/25 Rx tablet,extended release 24 hr (Toprol XL) calcitriol 0.5 mcg capsule 0.5 mcg PO BID #180 caps 09/22/24 03/13/25 Rx Medical Marijuana Card 1 dose UD PRN Back Pain 12/23/24 03/13/25 History furosemide 20 mg tablet (Lasix) 20 mg PO UD PRN edema 12/23/24 03/13/25 History lisinopril 20 mg tablet 20 mg PO QAM 12/23/24 03/13/25 History tadalafil 20 mg tablet 20 mg PO UD PRN sexual activity 12/23/24 03/13/25 History aripiprazole 5 mg tablet (Abilify) 10 mg PO PM 01/20/25 03/13/25 History tamsulosin 0.4 mg capsule 0.4 mg PO QAM #90 caps 02/06/25 03/13/25 Rx ascorbic acid (vitamin C) 500 mg 500 mg PO PM 03/13/25 03/13/25 History tablet (Vitamin C) cyanocobalamin (vitamin B-12) 500 0 mcg PO QAM 03/13/25 03/13/25 History mcg tablet pregabalin 50 mg capsule 50 mg PO TID 03/13/25 03/13/25 History testosterone 2 pump topical DAILY 03/13/25 03/13/25 History zinc 50 mg tablet 50 mg PO PM 03/13/25 03/13/25 History Past Med/Surg History Problem List (Updated 03/13/25 @ 12:47 by Glenys Nicholas DO) Acute respiratory failure Unstable angina Diabetes Obesity (BMI 30.0-34.9) Epigastric pain Coronary artery calcification LLQ abdominal pain Renal mass Paroxysmal A-fib Started by Dr Faulkner 05/2020 Atrial fibrillation 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 Sleep apnea cpap Coronary artery calcification not that pt aware of Renal mass not that pt aware of Thalassemia denies current or hx Depression denies depression, verifies bipolar dx. Bipolar disorder Kidney stones Hyperlipidemia HTN (hypertension) Paroxysmal A-fib dx approx 2022/no recent issues per pt/no hx cardioversion. History of diverticulitis entered into EMR 2013 Chronic right sacroiliac joint pain Barber's thyroiditis Metabolic syndrome Obesity Pre-diabetes Myofascial pain Lumbar facet joint syndrome Surgical History History of right inguinal hernia repair History of lumbar surgery x3 total/hx hardware and removal, only thing in there now is a cage per pt S/P colon resection H/O colonoscopy 08/05/22 repeat 5yrs History of appendectomy Family History Father Malignant neoplasm of testis Cardiac disorder Prostate cancer Hypertension Cancer Coronary heart disease, Onset Age: 54 smoker Myocardial infarction Unknown Cardiac disorder Grandfather Cancer Denies family history of Diabetes Deep vein thrombosis Dyslipidemia Lung cancer Pulmonary embolism Social History Smoking Status: Never smoker Tobacco Type: Cigarettes Age Started Using Tobacco: 15; Age Quit Using Tobacco: 32; packs per day: 1; Cigarettes Per Day: 20/day; Second Hand Exposure: No; Do You Dip or Chew Tobacco: No; Hx Alcohol Use: No Hx Substance Use: No Preferred Language: Lithuanian Communication Ability: Effective Visual Impairment: No Limitations Hearing Ability: Normal Bilingual Sales Representative Required: No Beliefs That Will Affect Care: None marital status: Current Living Situation: Spouse Current Living Situation Comment: and dog current occupational status: retired 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 How many Children do You have: 2 Feels Safe at Home: Yes Diet: regular during the past year weight has: remained stable Assistive Devices: CPAP and Glasses Review of Systems Review of Systems: Constitutional: No Weight Change, No Fever, No Chills, No Night Sweats, No Fatigue, No Malaise Cardiovascular: + for chest pain; + for dyspnea on exertion; +for hx of a-fib Respiratory + for clear sputum; + for wheezing; no 2nd hand smoke exposure Gastrointestinal: No Nausea, No Vomiting, No Diarrhea, No Constipation, No Pain, No Heartburn, No Anorexia Genitourinary: + for renal mass Musculoskeletal: + for chronic back pain Skin: No Skin Lesions, No Pruritis, No Hair Changes, No Breast/Skin Changes, No Nipple Discharge psych: + for bipolar disorder Physical Exam Physical Exam: VITALS: Reviewed. WEIGHT/BMI reviewed. GEN: Healthy appearing, well-developed, NAD. PSYCH: Good Judgment. AOx3. Normal memory, mood, and affect. HEENT -Head: NC/AT; NECK: no JVD CV: RRR, no m/r/g. LUNGS: decreased breath sound;no crackles at lung base ABD: Soft, NT/ND, NBS, no masses or organomegaly. : no CVA tenderness MSK: no presacral edema EXT: No clubbing, cyanosis, or edema. NEURO: AAOx3 Results & Data Results & Data Vital Signs (Past 12 Hours) Vital Signs Temp Pulse Pulse Resp BP BP Pulse Ox 03/13/25 12:00 64 17 116/72 95 03/13/25 10:00 68 25 H 160/106 H 96 03/13/25 09:49 75 03/13/25 09:45 68 25 H 95 03/13/25 09:45 94 03/13/25 09:45 03/13/25 09:09 36.1 C L 76 26 H 141/88 H 94 O2 Del Method O2 Flow Rate 03/13/25 12:00 Room Air, Nasal Cannula 2 03/13/25 10:00 Nasal Cannula 2 03/13/25 09:49 03/13/25 09:45 Nasal Cannula 2 03/13/25 09:45 Nasal Cannula 2 03/13/25 09:45 Nasal Cannula 2 03/13/25 09:09 Room Air Laboratory Results Laboratory Results - last 72 hr 03/13/25 03/13/25 03/13/25 09:35 11:05 11:40 WBC 11.10 H RBC 6.14 H Hgb 12.6 L Hct 41.6 L MCV 67.8 L MCH 20.5 L MCHC 30.3 L RDW Std Deviation 36.6 RDW Coeff of Robby 17.2 H Plt Count 228 MPV 10.5 Immature Gran % (Auto) 0.6 Neut % (Auto) 69.2 Lymph % (Auto) 19.2 [place] % (Auto) 8.9 Eos % (Auto) 1.4 Baso % (Auto) 0.7 Neut # (Auto) 7.68 H Lymph # (Auto) 2.13 [place] # (Auto) 0.99 H Eos # (Auto) 0.15 Baso # (Auto) 0.08 Immature Gran # (Auto) 0.07 Polychromasia 1+ Hypochromasia Present Microcytosis Present Tear Drop Cells 2+ Ovalocytes 1+ PT 10.6 INR 1.0 APTT 27 PTT Ratio 1.0 VBG pH 7.34 L VBG pCO2 62 H VBG pO2 38 VBG HCO3 33 VBG O2 Saturation < 60.0 VBG Base Excess 5.7 Sodium 141 Potassium 4.5 Chloride 106 Carbon Dioxide 30 Anion Gap 5 BUN 23 Creatinine 1.12 Est Cr Clr Drug Dosing 88.3 eGFR 72.45 BUN/Creatinine Ratio 20.5 H Glucose 119 H Calcium 9.8 Magnesium 2.1 Total Bilirubin 0.6 AST 14 ALT 19 Alkaline Phosphatase 60 Troponin I High Sens 3.3 B-Natriuretic Peptide 83 Total Protein 6.9 Albumin 4.2 Globulin 2.7 Albumin/Globulin Ratio 1.6 Urine Color Yellow Urine Appearance Clear Urine pH 5.5 Ur Specific [place] 1.019 Urine Protein Negative Urine Glucose (UA) Negative Urine Ketones Negative Urine Blood Trace H Urine Nitrite Negative Urine Bilirubin Negative Urine Urobilinogen Negative Ur Leukocyte Esterase Trace H Urine WBC (Auto) 0-5 Urine RBC (Auto) 6-10 H U Hyaline Cast (Auto) 0-2 U Epithel Cells (Auto) 0-2 Urine Bacteria (Auto) None Seen Urine Comment SARS-CoV-2 (PCR) NEGATIVE Influenza Type A (PCR) Negative Influenza Type B (PCR) Negative RSV (RT-PCR) Negative Medications Administered Chest X-Ray 03/13/25 09:13 XR chest 1V portable CLINICAL HISTORY: Dyspnea COMPARISON STUDY: 08/16/2024 FINDINGS: There is stable moderate elevation of the right hemidiaphragm. There is no consolidation or pleural effusion. No pneumothorax. Heart size and pulmonary vasculature are normal. There is a 2 cm oval density at the right hilum/perihilar region. IMPRESSION: 1. No acute findings. 2. Right hilar density could represent artifact from pulmonary vasculature or enlarged lymph node or pulmonary nodule. Follow-up chest CT suggested. ACT 112: Positive. There are findings on this exam that require communication between the performing entity and the patient following Patient Test Result Information Act ([place] Act 112) guidelines. Electronically signed by: Sim Eduardo M.D. 03/13/2025 9:50 AM Code Status & VTE Plan Code Status Full Code designate as decision maker VTE Prophylaxis Plan VTE Prophylaxis will be ordered: Yes PG Care Time/CCT Total # of Minutes Spent Total Time Spent with Patient: Total time spent is greater than 50% in coordination of care (as documented) at patient's floor/unit and/or counseling patient: Coding Level of Care Code 30991 INT INP/OBS CARE 1/40MIN Diagnoses Unstable angina I20.0 Acute respiratory failure J96.00 Time Spent (min) 35
[2025-03-13] MEDS: ROSUVASTATIN CALCIUM 10 MG TAB PO SCH (13:08)
[2025-03-13] MEDS: METOPROLOL TARTRATE 25 MG TAB PO ONE (13:08)
[2025-03-13] MEDS ORDERED: MEDICAL MARIJUANA INH PRN (13:22)
[2025-03-13] MEDS: Heparin IV Adult Wt-Based Low-Dose *NO* INITIAL Bolus Protocol IV STA (13:28)
[2025-03-13] MEDS: HEPARIN 25000 UNIT/500 ML D5W 25,000 UNITS/500 ML BAG IV SCH (13:52)
--- NOTE | 2025-03-13 14:46 | Cardiology Consultation ---
Date of Consultation March 13, 2025 Assessment & Plan (1) Chest pain: (2) Shortness of breath: (3) Atrial fibrillation: (4) HTN, goal below 130/80: (5) Hyperlipidemia: Plan - 2 EKGs from this hospitalization are not concerning for myocardial ischemia. Initial troponin negative, second troponin is pending. - 2nd troponin level will determine if any further work up is needed such as stress testing, cardiac catheterization, etc. - Unclear etiology regarding shortness of breath at this time. Consider pulmonology consult - Currently in normal sinus rhythm. Continue Eliquis twice daily and metoprolol succinate 50 mg daily - Blood pressure is appropriate at this time, continue to monitor. - Last lipid panel was appropriate. Consider repeat. Continue statin therapy Supervising Physician Co-Signing Physician Notes Patient was seen and examined. His symptoms do not appear to be cardiac in nature. I would recommend a pulmonary evaluation. History of Present Illness Reason for Consultation: Dyspnea on exertion, chest discomfort Attending Physician: Glenys Nicholas DO History of Present Illness Albaro is a 64-year-old male with a past medical history of paroxysmal A-fib on Eliquis, HTN, HLD, FATOU, thalassemia who presents to the ER today due to chest pain and shortness of breath. Patient states that over the last 2-3 months he has been experiencing intermittent shortness of breath, chest pain and dizziness. The chest pain and shortness of breath can occur at rest, but are more frequently associated with exertion. He also endorses a harsh cough when he becomes SOB on exertion. After several minutes of rest, the chest pain and shortness of breath will alleviate themselves. Over the last month, the frequency and intensity of these symptoms have increased to the point where the patient is experiencing these symptoms on a daily basis. There are times when the symptoms occur altogether or separately. The episodes last anywhere between 5 minutes to a couple hours. Regarding his dizziness, he is associating this with his atrial fibrillation. Whenever the dizziness occurs, he can feel, "fluttering," in his chest. These episodes are self limiting last approximately 2 to 5 minutes. On this encounter, the chest discomfort and shortness of breath are occurring at rest and have been for several hours. He describes the chest discomfort as is there are, "a ton of bricks," on the center of his chest. There is no radiation of said pain. He did have an episode of diaphoresis earlier, but this is subsided. He is currently experiencing shortness of breath while laying at an 80 degree angle. No dizziness or nausea reported. He was mildly hypertensive upon arrival, but was given metoprolol tartrate which relieved this. He is on 2L via NC for an episode of mild hypoxia. He has had 2 EKGs completed in the ER thus far, neither are concerning for acute ischemia. Initial HS troponin negative, second is pending. He does follow with Dr. Murillo in our clinic for atrial fibrillation and hyperte nsion. He had an exercise stress test on 01/26/24 though this was found to be nondiagnostic as he was unable to reach his target heart rate due to dyspnea. This was ordered due to reports of chest discomfort without enzyme or EKG changes. We then proceeded with a Lexiscan stress test. Normal myocardial perfusion was noted. It was considered to be a nondiagnostic stress EKG due to inability to reach his heart rate with Lexiscan. Allergies Allergy/AdvReac Type Severity Reaction Status Date / Time No Known Allergies Allergy Verified 01/20/25 10:02 Home Medications Medication Instructions Recorded Confirmed Type cholecalciferol (vitamin D3) 125 1,000 units PO PM 03/31/22 03/13/25 History mcg (5,000 unit) tablet bupropion HCl 150 mg tablet,12 hr 150 mg PO QAM #90 ea 12/29/23 03/13/25 Rx sustained-release (Wellbutrin SR) levothyroxine 125 mcg tablet 125 mcg PO QAM #90 tabs 01/01/24 03/13/25 Rx apixaban 5 mg tablet (Eliquis) 5 mg PO BID #180 tabs 04/26/24 03/13/25 Rx atorvastatin 10 mg tablet (Lipitor) 10 mg PO QAM #90 tabs 09/13/24 03/13/25 Rx metoprolol succinate 50 mg 50 mg PO HS #90 tabs 09/13/24 03/13/25 Rx tablet,extended release 24 hr (Toprol XL) calcitriol 0.5 mcg capsule 0.5 mcg PO BID #180 caps 09/22/24 03/13/25 Rx Medical Marijuana Card 1 dose UD PRN Back Pain 12/23/24 03/13/25 History furosemide 20 mg tablet (Lasix) 20 mg PO UD PRN edema 12/23/24 03/13/25 History lisinopril 20 mg tablet 20 mg PO QAM 12/23/24 03/13/25 History tadalafil 20 mg tablet 20 mg PO UD PRN sexual activity 12/23/24 03/13/25 History aripiprazole 5 mg tablet (Abilify) 10 mg PO PM 01/20/25 03/13/25 History tamsulosin 0.4 mg capsule 0.4 mg PO QAM #90 caps 02/06/25 03/13/25 Rx ascorbic acid (vitamin C) 500 mg 500 mg PO PM 03/13/25 03/13/25 History tablet (Vitamin C) cyanocobalamin (vitamin B-12) 500 0 mcg PO QAM 03/13/25 03/13/25 History mcg tablet pregabalin 50 mg capsule 50 mg PO TID 03/13/25 03/13/25 History testosterone 2 pump topical DAILY 03/13/25 03/13/25 History zinc 50 mg tablet 50 mg PO PM 03/13/25 03/13/25 History Patient History Medical History History of COVID-19 approx 2021 - no hx hospitalization. Sleep apnea cpap Coronary artery calcification not that pt aware of Renal mass not that pt aware of Thalassemia denies current or hx Depression denies depression, verifies bipolar dx. Bipolar disorder Kidney stones Hyperlipidemia HTN (hypertension) Paroxysmal A-fib dx approx 2022/no recent issues per pt/no hx cardioversion. History of diverticulitis entered into EMR 2013 Chronic right sacroiliac joint pain Barber's thyroiditis Metabolic syndrome Obesity Pre-diabetes Myofascial pain Lumbar facet joint syndrome Surgical History History of right inguinal hernia repair History of lumbar surgery x3 total/hx hardware and removal, only thing in there now is a cage per pt S/P colon resection H/O colonoscopy 08/05/22 repeat 5yrs History of appendectomy Family History Father Malignant neoplasm of testis Cardiac disorder Prostate cancer Hypertension Cancer Coronary heart disease, Onset Age: 56 smoker Myocardial infarction Unknown Cardiac disorder Grandfather Cancer Denies family history of Diabetes Deep vein thrombosis Dyslipidemia Lung cancer Pulmonary embolism Social History Smoking Status: Former smoker Tobacco Type: Cigarettes Age Started Using Tobacco: 15; Age Quit Using Tobacco: 32; packs per day: 1; Cigarettes Per Day: 20/day; Second Hand Exposure: No; Do You Dip or Chew Tobacco: No; Hx Alcohol Use: No Hx Substance Use: No Preferred Language: Nepali Communication Ability: Effective Visual Impairment: No Limitations Hearing Ability: Normal Lead Technical Writer Required: No Beliefs That Will Affect Care: None marital status: Current Living Situation: Spouse Current Living Situation Comment: and dog current occupational status: retired 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 Mood affect appear normal. All questions appropriately. Obese HEENT: Sclerae are anicteric. Pupils are equal and reactive to light and accommodation. Extraocular movements were intact. Neuro: Cranial nerves intact Lungs: Lungs are diminished to auscultation bilaterally. There are no rales wheezes or rhonchi. Normal respiratory effort without use of accessory muscles. Cardiac: The rhythm was regular. S1 and S2 were normal. There are no murmurs on examination. The PMI was not markedly displaced on palpation. Extremities: Patient has bilateral radial pulses that are equal in intensity. There is no evidence cyanosis or clubbing. There was no evidence of significant peripheral edema bilaterally. Skin: There are no rashes noted on examination today. Results & Data Vital Signs (Past 12 Hours) Vital Signs Temp Pulse Pulse Resp BP BP Pulse Ox 03/13/25 13:08 77 109/62 03/13/25 12:00 64 17 116/72 95 03/13/25 10:00 68 25 H 160/106 H 96 03/13/25 09:49 75 03/13/25 09:45 68 25 H 95 03/13/25 09:45 94 03/13/25 09:45 03/13/25 09:09 36.1 C L 76 26 H 141/88 H 94 O2 Del Method O2 Flow Rate 03/13/25 13:08 03/13/25 12:00 Room Air, Nasal Cannula 2 03/13/25 10:00 Nasal Cannula 2 03/13/25 09:49 03/13/25 09:45 Nasal Cannula 2 03/13/25 09:45 Nasal Cannula 2 03/13/25 09:45 Nasal Cannula 2 03/13/25 09:09 Room Air PG Care Time/CCT Total # of Minutes Spent Total Time Spent with Patient: Total time spent is greater than 50% in coordination of care (as documented) at patient's floor/unit and/or counseling patient: Coding Level of Care Code 21410 INT INP/OBS CARE 3/75MIN Diagnoses Chest pain, unspecified type R07.9 Chest pain type: unspecified Shortness of breath R06.02 Paroxysmal atrial fibrillation I48.0 Atrial fibrillation type: paroxysmal HTN, goal below 130/80 I10 Other hyperlipidemia E78.49 Hyperlipidemia type: other hyperlipidemia (1) Chest pain Chest pain type: unspecified Qualified Code(s): R07.9 - Chest pain, unspecified (3) Atrial fibrillation Atrial fibrillation type: paroxysmal Qualified Code(s): I48.0 - Paroxysmal atrial fibrillation (5) Hyperlipidemia Hyperlipidemia type: other hyperlipidemia Qualified Code(s): E78.49 - Other hyperlipidemia
[2025-03-13] MEDS: FUROSEMIDE INJ 20 MG/2 ML VIAL IV ONE (14:50)
[2025-03-13] MEDS: cefTRIAXone SODIUM 2,000 MG/50 ML BAG IV ONE (14:56)
--- NOTE | 2025-03-13 16:08 | CT Scan Report ---
CT chest diagnostic wo con CT DOSE: 923.65 mGy.cm CLINICAL HISTORY: dyspnea, r/o PNA, bronchiectesis, mucus plug. TECHNIQUE: Multiaxial CT images of the chest were performed without contrast. A dose lowering techni que was utilized adhering to the principles of ALARA. COMPARISON STUDY: Chest x-ray earlier today and CT of 01/02/2014 FINDINGS: Moderate elevation of the right hemidiaphragm is stable compared with 2014. There is minima l atelectasis or scarring at the right lung base. No other pulmonary consolidation or pleural effusio n. No pneumothorax. No significant pulmonary nodule. No enlarged adenopathy seen. The right perihilar density on the chest x-ray earlier today likely represented artifact. There is minimal bronchiectasi s at the right lower lobe. No significant airway secretions or mucous plugging seen. No pericardial e ffusion. There are diffuse coronary artery calcifications. There is ectasia of the ascending thoracic aorta measuring 4.2 cm diameter, mildly increased. There is retroesophageal right subclavian artery, anatomic variant. There are mild diffuse degenerative changes at the thoracic spine. No acute osseou s findings. IMPRESSION: 1. No evidence of acute pneumonia or significant pulmonary nodule. 2. Otherwise as described. ACT 112: Negative or not required by law. Electronically signed by: Sim Eduardo M.D. 03/13/2025 4:06 PM
[2025-03-13] MEDS: PREGABALIN 50 MG CAP PO SCH (16:16)
[2025-03-13 20:25] LABS: ANTI-Xa, UFH(UnfractionatedHep 0.49 IU/ml (0.3-0.7)
[2025-03-13] MEDS: ZINC SULFATE 220 MG CAPSULE PO SCH (21:01)
[2025-03-13] MEDS: METOPROLOL SUCC 50MG EXT REL TAB PO SCH (21:01)
[2025-03-13] MEDS: CALCITRIOL 0.25 MCG CAPSULE PO SCH (21:02)
[2025-03-13] MEDS: ASCORBIC ACID 500 MG TAB PO SCH (21:02)
[2025-03-13] MEDS: CHOLECALCIFEROL 125 MCG (5,000 UNITS) TAB PO SCH (21:02)
--- NOTE | 2025-03-14 00:05 | Ultrasound Report ---
Exam(s): US VENOUS BILATERAL LOWER EXTREMITIES EXAM: US Duplex Bilateral Lower Extremities Veins CLINICAL HISTORY: Reason for exam: chest pain, hx of renal mass. TECHNIQUE: Real-time duplex ultrasound scan of the bilateral lower extremity veins integrating B-mode two-dimensional vascular structure, Doppler spectral analysis, color flow Doppler imaging and compression. COMPARISON: No relevant prior studies available. FINDINGS: Right deep veins: Unremarkable. No DVT in the right common femoral, femoral, proximal deep femoral or popliteal veins. The veins demonstrate normal color flow, are normally compressible, with normal phasic flow and/or augmentation response. Right superficial veins: Unremarkable. No thrombus in the visualized right great saphenous vein. Left deep veins: Unremarkable. No DVT in the left common femoral, femoral, proximal deep femoral or popliteal veins. The veins demonstrate normal color flow, are normally compressible, with normal phasic flow and/or augmentation response. Left superficial veins: Unremarkable. No thrombus in the visualized left great saphenous vein. Soft tissues: No acute findings. No popliteal cyst. IMPRESSION: No DVT Electronically signed by: Juan Daniel Witt MD 03/14/25 00:04 AM
--- NOTE | 2025-03-14 03:49 | Communication Note ---
Date of Service: March 14, 2025 Notified by RN of patient becoming tachycardic with HR ranging between 110-130. Other VSS. At this time, patient also experiencing heavy pressure sensation over his chest w/o radiation, palpitations, and SOB. On arrival to bedside, patient visibly uncomfortable and dyspneic. EKG done and showing a-fib with RVR with rates of 117. On exam, no swelling in b/l LE and lungs are clear to auscultation; rest of exam unremarkable. Patient then became more SOB shortly after sitting up then laying down but this improved after a few minutes of rest (though still worse than it was earlier in the evening). Labs from the prior morning showing potassium of 4.5, Magnesium of 2.1, and Cr of 1.12. Ordered repeat BMP, Magnesium level, and troponins to evaluate further, which showed K+ and Mag levels similar to those seen in previous day's labs. Troponins negative x1 (4am). Possible current sxs are due to elevated HR associated to a-fib with RVR plus or minus anginal sxs. Although this increase in SOB could be due to elevated rates plus his pre-existing c/o SOB with exertion which lead to current admission, did add CXR to ensure there is no acute pulmonary process contributing to sxs since he does feel this time is worse, but results showed no acute cardiopulmonary abnormality. Will give LR 500 mL bolus and then run 500 mL at maintenance rate. Lopressor 5 mg IV x1 given with return to NSR at rates of 60s and patient reports improvement in SOB to what it was earlier in the day and resolution of chest pain after a few minutes. Will continue to monitor. Resident Activity Tracking Resident Involvement: Resident Care Provided Care Provided: Adult Hospital Medicine
[2025-03-14] MEDS: LACTATED RINGER'S 500 ML IV ONE (03:51)
[2025-03-14] MEDS: METOPROLOL TARTRATE 1 MG/ML VIAL IV STA (03:54)
[2025-03-14 04:10] LABS: Hematocrit (blood only) 41.6 % (42.0-52.0); Hemoglobin 12.3 g/dl (14.0-18.0); Mean Corpuscular Hemoglobin 20.1 pg (25.0-34.0); Mean Corpuscular Volume 68.1 fL (80.0-100.0); Platelet Count 228 K/uL (130-400); RDW Standard Deviation 37.5 fL (36.4-46.3); Red Blood Count 6.11 M/uL (4.70-6.10); White Blood Count 11.22 K/ul (4.8-10.8)
[2025-03-14 04:25] LABS: Anion Gap 5.0 (3-11); Blood Urea Nitrogen 23.0 mg/dl (6-23); Calcium 9.1 mg/dl (8.6-10.3); Carbon Dioxide 31.0 mmol/L (21-32); Chloride 106.0 mmol/L (98-107); Creatinine Clr Calc Pharmacy 77.1 ml/min; Glucose 117.0 mg/dl (70-99(Fasting)); Magnesium 2.0 mg/dl (1.7-2.4); Potassium 4.3 mmol/L (3.5-5.1); Sodium 142.0 mmol/L (136-145)
[2025-03-14 04:26] LABS: Alanine Aminotransferase 17.0 U/L (7-52); Albumin Globulin Ratio 1.8 (0.9-2); Alkaline Phosphatase 54.0 U/L (34-104); Anion Gap 6.0 (3-11); Bilirubin,Total 0.5 mg/dl (0.2-1.0); Blood Urea Nitrogen 23.0 mg/dl (6-23); Calcium 9.0 mg/dl (8.6-10.3); Carbon Dioxide 29.0 mmol/L (21-32); Chloride 107.0 mmol/L (98-107); Creatinine Clr Calc Pharmacy 80.2 ml/min; Globulin 2.2 gm/dl (2.5-4.0); Glucose 117.0 mg/dl (70-99(Fasting)); Potassium 4.4 mmol/L (3.5-5.1); Sodium 142.0 mmol/L (136-145); Total Protein 6.2 gm/dl (6.0-8.3)
[2025-03-14 05:04] LABS: ANTI-Xa, UFH(UnfractionatedHep 0.32 IU/ml (0.3-0.7)
[2025-03-14] MEDS: LEVOTHYROXINE SODIUM 125 MCG TABLET PO SCH (05:25)
--- NOTE | 2025-03-14 05:30 | XRay Report ---
EXAM: XR chest 1V portable CLINICAL HISTORY: Shortness of breath. TECHNIQUE: An X-ray image of the chest was obtained in the anteroposterior (AP) projection. COMPARISON: CR on 08/16/2024. FINDINGS: Pulmonary Parenchyma: A right basal atelectatic band is observed. An elevated right hemidiaphragm is noted. There is no evidence of consolidation, collapse, or focal opacities. No pulmonary nodules are identified. There is no evidence of pleural effusion or pleural thickening. Heart and Mediastinum: A prominent aortic arch is seen. The cardiac size is mildly enlarged; however, the cardiac size cannot be properly assessed in the anteroposterior projection. There is no mediastinal widening or mass. No hilar or mediastinal lymphadenopathy is present. Bony Thorax: The bony thorax appears intact without fractures or deformities. Soft Tissues: The soft tissues overlying the chest wall are unremarkable. Chest wall leads are noted. A new tube is present in the left side of the neck and upper chest (oxygen delivery system ). IMPRESSION: 1. A new right basal atelectatic band is observed. 2. The elevated right hemidiaphragm is stable. 3. No acute cardiopulmonary abnormalities are identified. 5. Other findings are stable. Electronically signed by Jn Chin 03-14-2025 05:30 AM
[2025-03-14] MEDS: CEFEPIME 2000MG 2,000 MG/20 ML SYR IV SCH (08:23)
[2025-03-14] MEDS: guaiFENesin 600 MG TABCR PO SCH (08:26)
[2025-03-14] MEDS: ATORVASTATIN 10 MG TAB PO SCH (08:26)
[2025-03-14] MEDS: CYANOCOBALAMIN (B-12) 500 MCG TABLET PO SCH (08:27)
[2025-03-14] MEDS: TAMSULOSIN HCL 0.4 MG CAP PO SCH (08:27)
[2025-03-14] MEDS: FUROSEMIDE 20 MG TAB PO SCH (08:27)
--- NOTE | 2025-03-14 09:10 | Hospitalist Progress Note ---
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 quitted smoking in 1984. since december 2024; been having worsening exertional chest pain and shortness of breath. his also mentioned he's has worsening wheezing. he's now noticing resting chest pain and prsented to our ED for evauation, he's was found to has hypoxic and started on 2 liter oxygen. he s/p CT chest his WBC is elevated at 11-12, and will be admitted to medicine services for unstable angina and acute respiratory failure 1 unstable angina 2. acute respiratory failure 3. hx of A-fib on eliquis 4. hx of erectile dysfunction on talafail 5. hx of renal mass 6. bipolar disorder 7. BPH 8. family hx of premature CAD 1. unstable angina symptom started since December 2024, normally half block exercise tolerance plan to increased metoprolol dosage from 50mg to 75mg he last dose talafail on Thursday evening. cardiology requested pulmonary evaluation appreciate cardiology input about benefit from LHC and RHC high dose statin, crestor 20mg, aspirin hold eliquis, heparin ACS dose 2. acute respiratory failure ceftriaxone, oxygen 2liter oxygen s/p CT chest w/o contrsat on 03/13 dulainey farfanex 3. hx of A-fib he's take eliquis 5mg and he's on metoprolol XL 50mg lisinopril 20mg and lasix 20mg daily he's off eliquis and bridging with heparin 4. mood disorder, bipolar, he's on abilify 5mg and cymbalta 60mg and wellbutrin substain release 150mg daily 5. hypothyroidism-levothyroxine 125 mcg 6. BPH-flomax 0.4mg 7. 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 his eliquis being held appreciate cardiology and pulmonary input about LHC and RHC Review of Systems Review of Systems: Constitutional: No Weight Change, No Fever, No Chills, No Night Sweats, No F atigue, No Malaise Cardiovascular: + for chest pain; no palpitation, no orthopnea lung: + for shortness of breath; no wheezing; no hemoptysis; Gastrointestinal: No Nausea, No Vomiting, No Diarrhea, No Constipation, No Pain, No Heartburn, Musculoskeletal: No Arthralgias, No Myalgias, No Joint Swelling, No Joint Stiffness, No Back Pain, No Neck Pain, No Injury History Neuro: No Weakness, No Numbness, No Paresthesias, No Loss of Consciousness, No Syncope, No Dizziness, No Headache, No Coordination Changes, No Recent Falls Psych: No Anxiety/Panic, No Depression, No Insomnia, No Personality Changes, No Delusions, No Rumination, No SI/HI/AH/VH, No Social Issues, No Memory Changes, No Violence/Abuse Hx., No Eating Concerns Physical Exam Physical Exam: VITALS: Reviewed. WEIGHT/BMI reviewed. GEN: Healthy appearing, well-developed, NAD. on oxygen. -Head: NC/AT; NECK: no JVD CV: RRR, no m/r/g. LUNGS: CTAB, no w/r/c. decrease breath sound; no wheezing; ABD: Soft, NT/ND, NBS, no masses or organomegaly. : N/A SKIN: Warm, well perfused. No skin rashes or abnormal lesions. MSK: No deformities, Normal gait. EXT: No clubbing, cyanosis, or edema. NEURO: AAOx3 Results & Data Results & Data Vital Signs (Past 12 Hours) Vital Signs Temp Pulse Pulse Resp BP BP BP 03/14/25 07:59 36.3 C L 66 20 136/82 03/14/25 07:43 03/14/25 07:24 61 03/14/25 04:15 66 112/68 03/14/25 03:54 118 H 123/79 03/14/25 03:32 36.2 C L 118 H 28 H 123/79 03/13/25 22:40 36.6 C 73 22 107/67 03/13/25 21:40 70 Pulse Ox O2 Del Method O2 Flow Rate 03/14/25 07:59 97 Nasal Cannula 2 03/14/25 07:43 Nasal Cannula 2 03/14/25 07:24 03/14/25 04:15 03/14/25 03:54 03/14/25 03:32 98 Nasal Cannula 3 03/13/25 22:40 96 Nasal Cannula 3 03/13/25 21:40 Laboratory Results Laboratory Results - last 72 hr 03/13/25 03/13/25 03/13/25 09:35 11:05 11:40 WBC 11.10 H RBC 6.14 H Hgb 12.6 L Hct 41.6 L MCV 67.8 L MCH 20.5 L MCHC 30.3 L RDW Std Deviation 36.6 RDW Coeff of Robby 17.2 H Plt Count 228 MPV 10.5 Immature Gran % (Auto) 0.6 Neut % (Auto) 69.2 Lymph % (Auto) 19.2 [place] % (Auto) 8.9 Eos % (Auto) 1.4 Baso % (Auto) 0.7 Neut # (Auto) 7.68 H Lymph # (Auto) 2.13 [place] # (Auto) 0.99 H Eos # (Auto) 0.15 Baso # (Auto) 0.08 Immature Gran # (Auto) 0.07 Polychromasia 1+ Hypochromasia Present Microcytosis Present Tear Drop Cells 2+ Ovalocytes 1+ ESR PT 10.6 INR 1.0 APTT 27 PTT Ratio 1.0 Heparin Anti-Xa, Unfract VBG pH 7.34 L VBG pCO2 62 H VBG pO2 38 VBG HCO3 33 VBG O2 Saturation < 60.0 VBG Base Excess 5.7 Sodium 141 Potassium 4.5 Chloride 106 Carbon Dioxide 30 Anion Gap 5 BUN 23 Creatinine 1.12 Est Cr Clr Drug Dosing 88.3 eGFR 72.45 BUN/Creatinine Ratio 20.5 H Glucose 119 H Calcium 9.8 Magnesium 2.1 Total Bilirubin 0.6 AST 14 ALT 19 Alkaline Phosphatase 60 Troponin I High Sens 3.3 B-Natriuretic Peptide 83 Total Protein 6.9 Albumin 4.2 Globulin 2.7 Albumin/Globulin Ratio 1.6 Urine Color Yellow Urine Appearance Clear Urine pH 5.5 Ur Specific [place] 1.019 Urine Protein Negative Urine Glucose (UA) Negative Urine Ketones Negative Urine Blood Trace H Urine Nitrite Negative Urine Bilirubin Negative Urine Urobilinogen Negative Ur Leukocyte Esterase Trace H Urine WBC (Auto) 0-5 Urine RBC (Auto) 6-10 H U Hyaline Cast (Auto) 0-2 U Epithel Cells (Auto) 0-2 Urine Bacteria (Auto) None Seen Urine Comment SARS-CoV-2 (PCR) NEGATIVE Influenza Type A (PCR) Negative Influenza Type B (PCR) Negative RSV (RT-PCR) Negative 03/13/25 03/13/25 03/14/25 14:29 19:45 03:53 WBC 11.22 H RBC 6.11 H Hgb 12.3 L Hct 41.6 L MCV 68.1 L MCH 20.1 L MCHC 29.6 L RDW Std Deviation 37.5 RDW Coeff of Robby 17.5 H Plt Count 228 MPV 10.9 Immature Gran % (Auto) Neut % (Auto) Lymph % (Auto) [place] % (Auto) Eos % (Auto) Baso % (Auto) Neut # (Auto) Lymph # (Auto) [place] # (Auto) Eos # (Auto) Baso # (Auto) Immature Gran # (Auto) Polychromasia Hypochromasia Microcytosis Tear Drop Cells Ovalocytes ESR PT INR APTT PTT Ratio Heparin Anti-Xa, Unfract 0.49 0.32 VBG pH VBG pCO2 VBG pO2 VBG HCO3 VBG O2 Saturation VBG Base Excess Sodium 142 Potassium Chloride Carbon Dioxide Anion Gap BUN Creatinine Est Cr Clr Drug Dosing eGFR BUN/Creatinine Ratio Glucose Calcium Magnesium Total Bilirubin AST ALT Alkaline Phosphatase Troponin I High Sens 3.3 B-Natriuretic Peptide Total Protein Albumin Globulin Albumin/Globulin Ratio Urine Color Urine Appearance Urine pH Ur Specific [place] Urine Protein Urine Glucose (UA) Urine Ketones Urine Blood Urine Nitrite Urine Bilirubin Urine Urobilinogen Ur Leukocyte Esterase Urine WBC (Auto) Urine RBC (Auto) U Hyaline Cast (Auto) U Epithel Cells (Auto) Urine Bacteria (Auto) Urine Comment SARS-CoV-2 (PCR) Influenza Type A (PCR) Influenza Type B (PCR) RSV (RT-PCR) 03/14/25 03/14/25 03/14/25 03:53 03:53 03:53 WBC RBC Hgb Hct MCV MCH MCHC RDW Std Deviation RDW Coeff of [place] Plt Count MPV Immature Gran % (Auto) Neut % (Auto) Lymph % (Auto) [place] % (Auto) Eos % (Auto) Baso % (Auto) Neut # (Auto) Lymph # (Auto) [place] # (Auto) Eos # (Auto) Baso # (Auto) Immature Gran # (Auto) Polychromasia Hypochromasia Microcytosis Tear Drop Cells Ovalocytes ESR PT INR APTT PTT Ratio Heparin Anti-Xa, Unfract VBG pH VBG pCO2 VBG pO2 VBG HCO3 VBG O2 Saturation VBG Base Excess Sodium 142 Potassium 4.4 4.3 Chloride 107 106 Carbon Dioxide 29 Anion Gap BUN Creatinine Est Cr Clr Drug Dosing eGFR BUN/Creatinine Ratio Glucose Calcium Magnesium Total Bilirubin AST ALT Alkaline Phosphatase Troponin I High Sens B-Natriuretic Peptide Total Protein Albumin Globulin Albumin/Globulin Ratio Urine Color Urine Appearance Urine pH Ur Specific [place] Urine Protein Urine Glucose (UA) Urine Ketones Urine Blood Urine Nitrite Urine Bilirubin Urine Urobilinogen Ur Leukocyte Esterase Urine WBC (Auto) Urine RBC (Auto) U Hyaline Cast (Auto) U Epithel Cells (Auto) Urine Bacteria (Auto) Urine Comment SARS-CoV-2 (PCR) Influenza Type A (PCR) Influenza Type B (PCR) RSV (RT-PCR) 03/14/25 03/14/25 03/14/25 03:53 03:53 03:53 WBC RBC Hgb Hct MCV MCH MCHC RDW Std Deviation RDW Coeff of Robby Plt Count MPV Immature Gran % (Auto) Neut % (Auto) Lymph % (Auto) [place] % (Auto) Eos % (Auto) Baso % (Auto) Neut # (Auto) Lymph # (Auto) [place] # (Auto) Eos # (Auto) Baso # (Auto) Immature Gran # (Auto) Polychromasia Hypochromasia Microcytosis Tear Drop Cells Ovalocytes ESR PT INR APTT PTT Ratio Heparin Anti-Xa, Unfract VBG pH VBG pCO2 VBG pO2 VBG HCO3 VBG O2 Saturation VBG Base Excess Sodium Potassium Chloride Carbon Dioxide 31 Anion Gap 6 5 BUN 23 23 Creatinine 1.23 Est Cr Clr Drug Dosing eGFR BUN/Creatinine Ratio Glucose Calcium Magnesium Total Bilirubin AST ALT Alkaline Phosphatase Troponin I High Sens B-Natriuretic Peptide Total Protein Albumin Globulin Albumin/Globulin Ratio Urine Color Urine Appearance Urine pH Ur Specific [place] Urine Protein Urine Glucose (UA) Urine Ketones Urine Blood Urine Nitrite Urine Bilirubin Urine Urobilinogen Ur Leukocyte Esterase Urine WBC (Auto) Urine RBC (Auto) U Hyaline Cast (Auto) U Epithel Cells (Auto) Urine Bacteria (Auto) Urine Comment SARS-CoV-2 (PCR) Influenza Type A (PCR) Influenza Type B (PCR) RSV (RT-PCR) 03/14/25 03/14/25 03/14/25 03:53 03:53 03:53 WBC RBC Hgb Hct MCV MCH MCHC RDW Std Deviation RDW Coeff of Robby Plt Count MPV Immature Gran % (Auto) Neut % (Auto) Lymph % (Auto) [place] % (Auto) Eos % (Auto) Baso % (Auto) Neut # (Auto) Lymph # (Auto) [place] # (Auto) Eos # (Auto) Baso # (Auto) Immature Gran # (Auto) Polychromasia Hypochromasia Microcytosis Tear Drop Cells Ovalocytes ESR PT INR APTT PTT Ratio Heparin Anti-Xa, Unfract VBG pH VBG pCO2 VBG pO2 VBG HCO3 VBG O2 Saturation VBG Base Excess Sodium Potassium Chloride Carbon Dioxide Anion Gap BUN Creatinine 1.28 Est Cr Clr Drug Dosing 80.2 77.1 eGFR 64.75 61.73 BUN/Creatinine Ratio 18.7 Glucose Calcium Magnesium Total Bilirubin AST ALT Alkaline Phosphatase Troponin I High Sens B-Natriuretic Peptide Total Protein Albumin Globulin Albumin/Globulin Ratio Urine Color Urine Appearance Urine pH Ur Specific [place] Urine Protein Urine Glucose (UA) Urine Ketones Urine Blood Urine Nitrite Urine Bilirubin Urine Urobilinogen Ur Leukocyte Esterase Urine WBC (Auto) Urine RBC (Auto) U Hyaline Cast (Auto) U Epithel Cells (Auto) Urine Bacteria (Auto) Urine Comment SARS-CoV-2 (PCR) Influenza Type A (PCR) Influenza Type B (PCR) RSV (RT-PCR) 03/14/25 03/14/25 03/14/25 03:53 03:53 03:53 WBC RBC Hgb Hct MCV MCH MCHC RDW Std Deviation RDW Coeff of Robby Plt Count MPV Immature Gran % (Auto) Neut % (Auto) Lymph % (Auto) [place] % (Auto) Eos % (Auto) Baso % (Auto) Neut # (Auto) Lymph # (Auto) [place] # (Auto) Eos # (Auto) Baso # (Auto) Immature Gran # (Auto) Polychromasia Hypochromasia Microcytosis Tear Drop Cells Ovalocytes ESR PT INR APTT PTT Ratio Heparin Anti-Xa, Unfract VBG pH VBG pCO2 VBG pO2 VBG HCO3 VBG O2 Saturation VBG Base Excess Sodium Potassium Chloride Carbon Dioxide Anion Gap BUN Creatinine Est Cr Clr Drug Dosing eGFR BUN/Creatinine Ratio 18.0 Glucose 117 H 117 H Calcium 9.0 9.1 Magnesium 2.0 Total Bilirubin 0.5 AST 13 ALT 17 Alkaline Phosphatase 54 Troponin I High Sens 4.4 B-Natriuretic Peptide Total Protein 6.2 Albumin 4.0 Globulin 2.2 L Albumin/Globulin Ratio 1.8 Urine Color Urine Appearance Urine pH Ur Specific [place] Urine Protein Urine Glucose (UA) Urine Ketones Urine Blood Urine Nitrite Urine Bilirubin Urine Urobilinogen Ur Leukocyte Esterase Urine WBC (Auto) Urine RBC (Auto) U Hyaline Cast (Auto) U Epithel Cells (Auto) Urine Bacteria (Auto) Urine Comment SARS-CoV-2 (PCR) Influenza Type A (PCR) Influenza Type B (PCR) RSV (RT-PCR) 03/14/25 08:29 WBC RBC Hgb Hct MCV MCH MCHC RDW Std Deviation RDW Coeff of Robby Plt Count MPV Immature Gran % (Auto) Neut % (Auto) Lymph % (Auto) [place] % (Auto) Eos % (Auto) Baso % (Auto) Neut # (Auto) Lymph # (Auto) [place] # (Auto) Eos # (Auto) Baso # (Auto) Immature Gran # (Auto) Polychromasia Hypochromasia Microcytosis Tear Drop Cells Ovalocytes ESR 8 PT INR APTT PTT Ratio Heparin Anti-Xa, Unfract VBG pH VBG pCO2 VBG pO2 VBG HCO3 VBG O2 Saturation VBG Base Excess Sodium Potassium Chloride Carbon Dioxide Anion Gap BUN Creatinine Est Cr Clr Drug Dosing eGFR BUN/Creatinine Ratio Glucose Calcium Magnesium Total Bilirubin AST ALT Alkaline Phosphatase Troponin I High Sens B-Natriuretic Peptide Total Protein Albumin Globulin Albumin/Globulin Ratio Urine Color Urine Appearance Urine pH Ur Specific [place] Urine Protein Urine Glucose (UA) Urine Ketones Urine Blood Urine Nitrite Urine Bilirubin Urine Urobilinogen Ur Leukocyte Esterase Urine WBC (Auto) Urine RBC (Auto) U Hyaline Cast (Auto) U Epithel Cells (Auto) Urine Bacteria (Auto) Urine Comment SARS-CoV-2 (PCR) Influenza Type A (PCR) Influenza Type B (PCR) RSV (RT-PCR) Medications Administered Chest X-Ray 03/13/25 09:13 XR chest 1V portable CLINICAL HISTORY: Dyspnea COMPARISON STUDY: 08/16/2024 FINDINGS: There is stable moderate elevation of the right hemidiaphragm. There is no consolidation or pleural effusion. No pneumothorax. Heart size and pulmonary vasculature are normal. There is a 2 cm oval density at the right hilum/perihilar region. IMPRESSION: 1. No acute findings. 2. Right hilar density could represent artifact from pulmonary vasculature or enlarged lymph node or pulmonary nodule. Follow-up chest CT suggested. ACT 112: Positive. There are findings on this exam that require communication between the performing entity and the patient following Patient Test Result Information Act ([place] Act 112) guidelines. Electronically signed by: Sim Eduardo M.D. 03/13/2025 9:50 AM Venous Doppler Study 03/13/25 12:57 Exam(s): US VENOUS BILATERAL LOWER EXTREMITIES EXAM: US Duplex Bilateral Lower Extremities Veins CLINICAL HISTORY: Reason for exam: chest pain, hx of renal mass. TECHNIQUE: Real-time duplex ultrasound scan of the bilateral lower extremity veins integrating B-mode two-dimensional vascular structure, Doppler spectral analysis, color flow Doppler imaging and compression. COMPARISON: No relevant prior studies available. FINDINGS: Right deep veins: Unremarkable. No DVT in the right common femoral, femoral, proximal deep femoral or popliteal veins. The veins demonstrate normal color flow, are normally compressible, with normal phasic flow and/or augmentation response. Right superficial veins: Unremarkable. No thrombus in the visualized right great saphenous vein. Left deep veins: Unremarkable. No DVT in the left common femoral, femoral, proximal deep femoral or popliteal veins. The veins demonstrate normal color flow, are normally compressible, with normal phasic flow and/or augmentation response. Left superficial veins: Unremarkable. No thrombus in the visualized left great saphenous vein. Soft tissues: No acute findings. No popliteal cyst. IMPRESSION: No DVT Electronically signed by: Juan Daniel Witt MD 03/14/25 00:[address] 03/13/25 15:32 CT chest diagnostic wo con CT DOSE: 923.65 mGy.cm CLINICAL HISTORY: dyspnea, r/o PNA, bronchiectesis, mucus plug. TECHNIQUE: Multiaxial CT images of the chest were performed without contrast. A dose lowering technique was utilized adhering to the principles of ALARA. COMPARISON STUDY: Chest x-ray earlier today and CT of 01/02/2014 FINDINGS: Moderate elevation of the right hemidiaphragm is stable compared with 2014. There is minimal atelectasis or scarring at the right lung base. No other pulmonary consolidation or pleural effusion. No pneumothorax. No significant pulmonary nodule. No enlarged adenopathy seen. The right perihilar density on the chest x-ray earlier today likely represented artifact. There is minimal bronchiectasis at the right lower lobe. No significant airway secretions or mucous plugging seen. No pericardial effusion. There are diffuse coronary artery calcifications. There is ectasia of the ascending thoracic aorta measuring 4.2 cm diameter, mildly increased. There is retroesophageal right subclavian artery, anatomic variant. There are mild diffuse degenerative changes at the thoracic spine. No acute osseous findings. IMPRESSION: 1. No evidence of acute pneumonia or significant pulmonary nodule. 2. Otherwise as described. ACT 112: Negative or not required by law. Electronically signed by: Sim Eduardo M.D. 03/13/2025 4:06 PM Chest X-Ray 03/14/25 03:44 EXAM: XR chest 1V portable CLINICAL HISTORY: Shortness of breath. TECHNIQUE: An X-ray image of the chest was obtained in the anteroposterior (AP) projection. COMPARISON: CR on 08/16/2024. FINDINGS: Pulmonary Parenchyma: A right basal atelectatic band is observed. An elevated right hemidiaphragm is noted. There is no evidence of consolidation, collapse, or focal opacities. No pulmonary nodules are identified. There is no evidence of pleural effusion or pleural thickening. Heart and Mediastinum: A prominent aortic arch is seen. The cardiac size is mildly enlarged; however, the cardiac size cannot be properly assessed in the anteroposterior projection. There is no mediastinal widening or mass. No hilar or mediastinal lymphadenopathy is present. Bony Thorax: The bony thorax appears intact without fractures or deformities. Soft Tissues: The soft tissues overlying the chest wall are unremarkable. Chest wall leads are noted. A new tube is present in the left side of the neck and upper chest (oxygen delivery system ). IMPRESSION: 1. A new right basal atelectatic band is observed. 2. The elevated right hemidiaphragm is stable. 3. No acute cardiopulmonary abnormalities are identified. 5. Other findings are stable. Electronically signed by Jn Chin 03-14-2025 05:30 AM PG Care Time/CCT Total # of Minutes Spent Total Time Spent with Patient: Total time spent is greater than 50% in coordination of care (as documented) at patient's floor/unit and/or counseling patient: Coding Level of Care Code 44255 SUB INP/OBS CARE 07/23MIN Diagnoses Unstable angina I20.0 Acute respiratory failure J96.00 Time Spent (min) 25
--- NOTE | 2025-03-14 09:38 | Cardiology Progress Note ---
Date of Service March 14, 2025 Assessment & Plan (1) Chest pain: (2) Dyspnea on exertion: Plan 1. Chest pain: Although his description of chest discomfort is suggestive of ischemia I do not believe that is the case. He may have coronary artery disease but I do not believe that is causing his symptoms I do not believe he has ischemia. I am not sure of the cause of his discomfort unless it is pulmonary in nature. 2. Dyspnea on exertion: This is longstanding and he seems to have some element of lung disease. I would recommend a pulmonary evaluation. I could do a stress test, he had one a year ago and he did not do very well and it was stopped for dyspnea without reaching target heart rate but it does not appear that pulse oximetry was just. I would prefer to have pulmonary seeing him first however. Admission and Anticipated Discharge Date Admission Date: March 13, 2025 Subjective He may be feeling little better today but he is on oxygen. He has not been very active. He has continued to have chest discomfort and he had some atrial fibrillation during the night, he was aware of it but did not really change his symptoms and that is a known issue. Physical Exam Physical Exam: Constitutional: Alert, cooperative and in no distress. HEENT: Unremarkable Neck: No jugular venous distention, carotid pulses are normal and equal bilaterally without bruits. Pulmonary: Clear to auscultation bilaterally but with prolonged expiration, expiratory wheezing on forced expiration. Cardiac: Regular rhythm with no murmur, gallop or rub. Abdomen: Soft, nontender with normal bowel sounds. Extremities: No edema. Neurologic: No focal findings. Gait is steady (to bathroom). Skin: No rash, ecchymoses or petechiae. Results & Data Vital Signs (Past 12 Hours) Vital Signs Temp Pulse Pulse Resp BP BP BP 03/14/25 07:59 36.3 C L 66 20 136/82 03/14/25 07:43 03/14/25 07:24 61 03/14/25 04:15 66 112/68 03/14/25 03:54 118 H 123/79 03/14/25 03:32 36.2 C L 118 H 28 H 123/79 03/13/25 22:40 36.6 C 73 22 107/67 03/13/25 21:40 70 Pulse Ox O2 Del Method O2 Flow Rate 03/14/25 07:59 97 Nasal Cannula 2 03/14/25 07:43 Nasal Cannula 2 03/14/25 07:24 03/14/25 04:15 03/14/25 03:54 03/14/25 03:32 98 Nasal Cannula 3 03/13/25 22:40 96 Nasal Cannula 3 03/13/25 21:40 Laboratory Results Cardiac Enzymes 03/13/25 03/13/25 03/14/25 Range/Units 09:35 14:29 03:53 AST 14 13 (13-39) U/L Troponin I High Sens 3.3 3.3 4.4 (0-20) pg/ml B-Natriuretic Peptide 83 (0-100) pg/ml Coagulation 03/13/25 Range/Units 09:35 PT 10.6 (9.0-12.0) Seconds APTT 27 (21-31) Seconds B-Natriuretic Peptide 83 (0-100) pg/ml CBC 03/13/25 03/14/25 Range/Units 09:35 03:53 WBC 11.10 H 11.22 H (4.8-10.8) K/ul RBC 6.14 H 6.11 H (4.70-6.10) M/uL Hgb 12.6 L 12.3 L (14.0-18.0) g/dl Hct 41.6 L 41.6 L (42.0-52.0) % Plt Count 228 228 (130-400) K/uL Neut # (Auto) 7.68 H (1.40-6.50) K/uL Lymph # (Auto) 2.13 (1.20-3.40) K/uL [place] # (Auto) 0.99 H (0.11-0.59) K/uL Eos # (Auto) 0.15 (0.00-0.50) K/uL Baso # (Auto) 0.08 (0.00-0.20) K/uL Comprehensive Metabolic Panel 03/13/25 03/14/25 03/14/25 Range/Units 09:35 03:53 03:53 Sodium 141 142 142 (136-145) mmol/L Potassium 4.5 4.4 (3.5-5.1) mmol/L Chloride 106 (98-107) mmol/L Carbon Dioxide 30 (21-32) mmol/L BUN 23 (6-23) mg/dl Creatinine 1.12 (0.6-1.4) mg/dl Glucose 119 H (70-99(Fasting)) mg/dl Calcium 9.8 (8.6-10.3) mg/dl AST 14 (13-39) U/L ALT 19 (7-52) U/L Alkaline Phosphatase 60 (34-104) U/L Total Protein 6.9 (6.0-8.3) gm/dl Albumin 4.2 (3.4-5.0) gm/dl 03/14/25 03/14/25 03/14/25 Range/Units 03:53 03:53 03:53 Sodium (136-145) mmol/L Potassium 4.3 (3.5-5.1) mmol/L Chloride 107 106 (98-107) mmol/L Carbon Dioxide 29 31 (21-32) mmol/L BUN 23 (6-23) mg/dl Creatinine (0.6-1.4) mg/dl Glucose (70-99(Fasting)) mg/dl Calcium (8.6-10.3) mg/dl AST (13-39) U/L ALT (7-52) U/L Alkaline Phosphatase (34-104) U/L Total Protein (6.0-8.3) gm/dl Albumin (3.4-5.0) gm/dl 03/14/25 03/14/25 03/14/25 Range/Units 03:53 03:53 03:53 Sodium (136-145) mmol/L Potassium (3.5-5.1) mmol/L Chloride (98-107) mmol/L Carbon Dioxide (21-32) mmol/L BUN 23 (6-23) mg/dl Creatinine 1.23 1.28 (0.6-1.4) mg/dl Glucose 117 H 117 H (70-99(Fasting)) mg/dl Calcium 9.0 (8.6-10.3) mg/dl AST (13-39) U/L ALT (7-52) U/L Alkaline Phosphatase (34-104) U/L Total Protein (6.0-8.3) gm/dl Albumin (3.4-5.0) gm/dl 03/14/25 Range/Units 03:53 Sodium (136-145) mmol/L Potassium (3.5-5.1) mmol/L Chloride (98-107) mmol/L Carbon Dioxide (21-32) mmol/L BUN (6-23) mg/dl Creatinine (0.6-1.4) mg/dl Glucose (70-99(Fasting)) mg/dl Calcium 9.1 (8.6-10.3) mg/dl AST 13 (13-39) U/L ALT 17 (7-52) U/L Alkaline Phosphatase 54 (34-104) U/L Total Protein 6.2 (6.0-8.3) gm/dl Albumin 4.0 (3.4-5.0) gm/dl Intake and Output 03/13/25 03/14/25 03/14/25 22:59 06:59 14:59 Intake Total 622.667 / 1398.000 775.333 / 1398.000 Output Total 350 / 950 600 / 950 350 / 350 Balance 272.667 / 448.000 175.333 / 448.000 -350 / -350 Intake: IV 182.667 / 858.000 675.333 / 858.000 Heparin 14966 Unit/500 ml D5w 132.667 / 308.000 175.333 / 308.000 25,000 units In 500 ml @ 1,000 UNITS/HR 20 mls/hr IV .Q24H RAHEEL Rx#:[id number] Lactated Ringer's 500 ml @ 999 500 / 500 mls/hr IV .Q31M ONE Rx#: [id number] cefTRIAXone SODIUM 2,000 mg In 50 / 50 50 ml @ 100 mls/hr IV NOW ONE Rx#:[id number] Oral 440 / 540 100 / 540 Output: Urine 350 / 950 600 / 950 Other 350 / 350 Other: Weight 120.2 kg Weight Measurement Method Standing Scale Diagnostic Findings Telemetry: Sinus rhythm with an episode of atrial fibrillation from around 1 AM to 4 AM at a rate of around 110 bpm. PG Care Time/CCT Total # of Minutes Spent Total Time Spent with Patient: Total time spent is greater than 50% in coordination of care (as documented) at patient's floor/unit and/or counseling patient: Coding Level of Care Code 82504 SUB INP/OBS CARE 3/50MIN Diagnoses Chest pain, unspecified type R07.9 Chest pain type: unspecified Dyspnea on exertion R06.00 (1) Chest pain Chest pain type: unspecified Qualified Code(s): R07.9 - Chest pain, unspecified
--- NOTE | 2025-03-14 09:49 | Pulmonary Consultation ---
Date of Consultation March 14, 2025 Assessment & Plan (1) NASSAR (dyspnea on exertion): (2) Chest heaviness: (3) FATOU on CPAP: (4) Elevated hemidiaphragm: Plan The patient has relatively benign pulmonary history. Very distant history of tobacco use. Still smokes marijuana however. Prior to the past few weeks he did not have respiratory symptoms. Imaging of the chest does not show evidence of acute infiltrates concerning for pneumonia. Inflammatory markers including ESR, CRP and procalcitonin are low. No significant peripheral eosinophilia prior to steroids on admission and no significant atopy history. The patient does endorse significant chest heaviness and dizziness associated with his dyspnea. Troponins and EKG however within normal limits. Cardiology is consulted and echocardiogram is pending. Less likely PE given chronic use of Eliquis and negative lower extremity duplex. Recommendations: Can stop cefepime and cover community-acquired pneumonia or 5 days with Rocephin and azithromycin. Can stop steroids. Can use bronchodilators as needed. Follow-up echocardiogram, if there is concern for RV dysfunction/increased RVSP or concerns for PE then possibly obtaining CT PE would be indicated. Cardiology is following along, heparin ACS protocol is going. The patient's symptoms are concerning for typical angina. The patient does have chronic right hemidiaphragm elevation however I do not think that this is contributing to acutely to his symptoms as this has been present for many years. I do not see a reason to workup diaphoretic dysfunction at this time. The patient has underlying obstructive sleep apnea and needs to be compliant with his CPAP. He is going to have his bring in his home CPAP machine to use [employer]. The patient should have full PFTs obtained in the outpatient setting. Thank you for this consult. I will continue to follow along with you. History of Present Illness Reason for Consultation: Dyspnea Requesting Physician: Glenys Nicholas DO Attending Physician: Gelnys Nicholas DO History of Present Illness Patient is a 64-year-old male with a past medical history of atrial fibrillation on Eliquis, obesity, obstructive sleep apnea with home CPAP, BPH, hypothyroidism, bipolar disorder and history of renal mass. The patient presented to the hospital with acutely worsening shortness of breath, dizziness, chest heaviness that occurred with exertion. The patient was found to be hypoxic in the emergency department and was placed on oxygen. Labs from admission showed WBC 11.1, hemoglobin 12.6, platelets 228. No significant peripheral eosinophilia. Chemistry was grossly within normal limits, potassium 4.5, creatinine 1.12, glucose 119, magnesium 2.1. LFTs within normal limits. Troponin x 3 negative. BNP was 83. EKG without evidence of ischemic changes. Normal thyroid function. VBG showed a pH of 7.34 with a pCO2 of 62. COVID, flu A/B and RSV were negative by PCR. Chest x-ray showed stable elevation of the right hemidiaphragm without evidence of pleural effusions, consolidations or pneumothorax. 2 cm oval density over the right hilum was appreciated for which a CT of the chest was obtained. CT did not show evidence of pneumonia or lung nodules. No significant adenopathy. Chronic right hemidiaphragm elevation stable compared to 2014, minimal atelectasis or scarring of the right lung base was appreciated and very minimal bronchiectasis in the right lower lobe. No sig nificant mucous plugging or airway secretions appreciated. Lower extremity Doppler did not show evidence of DVT. The patient was admitted to the hospitalist service. Cardiology was consulted. Echocardiogram was ordered. Eliquis was placed on hold and heparin drip was initiated ACS dosing. He was started on antibiotics and bronchodilators. Overnight the patient had an episode of chest heaviness, A-fib RVR and dyspnea for which a repeat x-ray was obtained that showed some new atelectatic bands but otherwise no acute changes. Pulmonary was consulted for further evaluation of dyspnea. When I evaluated the patient this morning he is resting comfortably in bed. Currently wearing nasal cannula. He endorses a 2-week history of worsening breathing problems that are associated with dizziness, chest heaviness and occasional wheezing. He says that these are usually always precipitated by activity, he notices it most when he does things like mowing grass outside but has also developed it when walking on flat ground. This symptoms usually last about 15 minutes, he has not used any medications or done anything besides just taking a break to resolve his symptoms. The patient has a past medical history of tobacco use but he quit smoking in 1984. He does not vape. He does occasionally smoke marijuana for medical purposes but is trying to switch to using oral cannabis due to concerns for smoking in his lungs. 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 He has 2 dogs at home and denies any allergies to pollen or pets. He denies any recent travel and cannot think of any illnesses that he had prior to his symptoms developing. He does have a family history of coronary artery disease. He does endorse a history of COVID-19 in the past, he was hospi talized for 1 day with this. He used inhalers briefly after this illness but does no longer use any inhalers. He denies any previous history of asthma and did not have asthma as a child. Denies any history of trauma or chest surgery that could have contributed to his right hemidiaphragm elevation. The patient denies any cough or phlegm production. He denies fevers, chills, night sweats or weight loss. He is compliant with his home CPAP but says that he did not have it last night. He is going to call his and have her bring in his home machine. On exam there is some mild rhonchi but no wheezing appreciated. Good air movement bilaterally. Allergies Allergy/AdvReac Type Severity Reaction Status Date / Time No Known Allergies Allergy Verified 01/20/25 10:02 Home Medications Medication Instructions Recorded Confirmed Type cholecalciferol (vitamin D3) 125 1,000 units PO PM 03/31/22 03/13/25 History mcg (5,000 unit) tablet bupropion HCl 150 mg tablet,12 hr 150 mg PO QAM #90 ea 12/29/23 03/13/25 Rx sustained-release (Wellbutrin SR) levothyroxine 125 mcg tablet 125 mcg PO QAM #90 tabs 01/01/24 03/13/25 Rx apixaban 5 mg tablet (Eliquis) 5 mg PO BID #180 tabs 04/26/24 03/13/25 Rx atorvastatin 10 mg tablet (Lipitor) 10 mg PO QAM #90 tabs 09/13/24 03/13/25 Rx metoprolol succinate 50 mg 50 mg PO HS #90 tabs 09/13/24 03/13/25 Rx tablet,extended release 24 hr (Toprol XL) calcitriol 0.5 mcg capsule 0.5 mcg PO BID #180 caps 09/22/24 03/13/25 Rx Medical Marijuana Card 1 dose UD PRN Back Pain 12/23/24 03/13/25 History furosemide 20 mg tablet (Lasix) 20 mg PO UD PRN edema 12/23/24 03/13/25 History lisinopril 20 mg tablet 20 mg PO QAM 12/23/24 03/13/25 History tadalafil 20 mg tablet 20 mg PO UD PRN sexual activity 12/23/24 03/13/25 History aripiprazole 5 mg tablet (Abilify) 10 mg PO PM 01/20/25 03/13/25 History tamsulosin 0.4 mg capsule 0.4 mg PO QAM #90 caps 02/06/25 03/13/25 Rx ascorbic acid (vitamin C) 500 mg 500 mg PO PM 03/13/25 03/13/25 History tablet (Vitamin C) cyanocobalamin (vitamin B-12) 500 0 mcg PO QAM 03/13/25 03/13/25 History mcg tablet pregabalin 50 mg capsule 50 mg PO TID 03/13/25 03/13/25 History testosterone 2 pump topical DAILY 03/13/25 03/13/25 History zinc 50 mg tablet 50 mg PO PM 03/13/25 03/13/25 History Patient History Medical History History of COVID-19 approx 2021 - no hx hospitalization. Sleep apnea cpap Coronary artery calcification not that pt aware of Renal mass not that pt aware of Thalassemia denies current or hx Depression denies depression, verifies bipolar dx. Bipolar disorder Kidney stones Hyperlipidemia HTN (hypertension) Paroxysmal A-fib dx approx 2022/no recent issues per pt/no hx cardioversion. History of diverticulitis entered into EMR 2013 Chronic right sacroiliac joint pain Barber's thyroiditis Metabolic syndrome Obesity Pre-diabetes Myofascial pain Lumbar facet joint syndrome Surgical History History of right inguinal hernia repair History of lumbar surgery x3 total/hx hardware and removal, only thing in there now is a cage per pt S/P colon resection H/O colonoscopy 08/05/22 repeat 5yrs History of appendectomy Family History Father Malignant neoplasm of testis Cardiac disorder Prostate cancer Hypertension Cancer Coronary heart disease, Onset Age: 54 smoker Myocardial infarction Unknown Cardiac disorder Grandfather Cancer Denies family history of Diabetes Deep vein thrombosis Dyslipidemia Lung cancer Pulmonary embolism Social History Smoking Status: Former smoker Tobacco Type: Cigarettes Age Started Using Tobacco: 15; Age Quit Using Tobacco: 32; packs per day: 1; Cigarettes Per Day: 20/day; Second Hand Exposure: No; Do You Dip or Chew Tobacco: No; Hx Alcohol Use: No Hx Substance Use: No Preferred Language: Kinyarwanda Communication Ability: Effective Visual Impairment: No Limitations Hearing Ability: Normal Mixer Attendant Required: No Beliefs That Will Affect Care: None marital status: Current Living Situation: Spouse Current Living Situation Comment: and dog current occupational status: retired 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 Negative except as noted in HPI. Physical Exam Physical Exam: Physical examination: General: Well-appearing, well-nourished and not in acute distress. HEENT: Normocephalic, atraumatic. Extraocular movements intact. Sclera are nonicteric. No JVD appreciated. Skin: Warm and dry. No rashes appreciated. No jaundice appreciated. Lymphatic: No pathologic/enlarged lymph nodes palpated in the neck or supraclavicular region. Cardiovascular: Heart is a regular rate and rhythm, no murmurs appreciated on my exam. No significant lower extremity edema. Lungs: Good air movement bilaterally, no wheezing appreciated. Occasional rhonchi appreciated on the right. Nontachypneic. Resting comfortably on nasal cannula. Abdomen: Protuberant, nondistended, nontender to palpation. Musculoskeletal: Normal muscle mass and tone. No gross joint deformity abnormalities. No effusions appreciated. Neurologic: Awake and alert, oriented. CN II through XII are grossly intact. Speech is fluent. Nonfocal exam. Psychiatric: Appropriate cooperative during my exam. Results & Data Results & Data Vital Signs (Past 12 Hours) Vital Signs Temp Pulse Pulse Resp BP BP BP 03/14/25 07:59 36.3 C L 66 20 136/82 03/14/25 07:43 03/14/25 07:24 61 03/14/25 04:15 66 112/68 03/14/25 03:54 118 H 123/79 03/14/25 03:32 36.2 C L 118 H 28 H 123/79 03/13/25 22:40 36.6 C 73 22 107/67 Pulse Ox O2 Del Method O2 Flow Rate 03/14/25 07:59 97 Nasal Cannula 2 03/14/25 07:43 Nasal Cannula 2 03/14/25 07:24 03/14/25 04:15 03/14/25 03:54 03/14/25 03:32 98 Nasal Cannula 3 03/13/25 22:40 96 Nasal Cannula 3 Laboratory Results ESR is low at 8. CRP is low at less than 0.50. Procalcitonin low less than 0.02. Diagnostic Findings I have personally reviewed the patient's chest imaging from this admission as well as dating back to 2013. There is chronic right hemidiaphragm elevation present. This has been there since at least 2013. No significant pulmonary nodules, emphysematous changes, GGO's or infiltrates appreciated. Most recent x-ray from this morning does show some atelectasis but otherwise appear stable. PG Care Time/CCT Total # of Minutes Spent Total Time Spent with Patient: Total time spent is greater than 50% in coordination of care (as documented) at patient's floor/unit and/or counseling patient: [place] [address] IN/OBS CONSULT LVL 4,60M Patient Type New History Detailed Exam Detailed Medical Decision Making Moderate Complexity Diagnoses NASSAR (dyspnea on exertion) R06.09 Chest heaviness R07.89 FATOU on CPAP G47.33 Elevated hemidiaphragm J98.6 Time Spent (min) 60 Comment 60 minutes of time were spent caring for this patient.
--- NOTE | 2025-03-14 11:25 | XCELERA ---
[id number]
[2025-03-14] MEDS ORDERED: cefTRIAXone SODIUM 2,000 MG/50 ML BAG IV SCH (13:00)
[2025-03-14] MEDS: ALBUT/IPRATROP 3MG/0.5MG NEB 3 ML VIAL NEB SCH (13:25)
[2025-03-14] MEDS ORDERED: ALBUT/IPRATROP 3MG/0.5MG NEB 3 ML VIAL NEB PRN (13:36)
[2025-03-14] MEDS ORDERED: SODIUM CHLOR 7% 4 ML NEB NEB SCH (19:00)
[2025-03-15 06:33] LABS: Hematocrit (blood only) 39.6 % (42.0-52.0); Hemoglobin 12.3 g/dl (14.0-18.0); Mean Corpuscular Hemoglobin 20.8 pg (25.0-34.0); Mean Corpuscular Volume 67.0 fL (80.0-100.0); Platelet Count 226 K/uL (130-400); RDW Standard Deviation 36.1 fL (36.4-46.3); Red Blood Count 5.91 M/uL (4.70-6.10); White Blood Count 15.16 K/ul (4.8-10.8)
[2025-03-15 07:00] LABS: ANTI-Xa, UFH(UnfractionatedHep 0.14 IU/ml (0.3-0.7)
[2025-03-15 07:10] LABS: Alanine Aminotransferase 15.0 U/L (7-52); Albumin Globulin Ratio 1.9 (0.9-2); Alkaline Phosphatase 53.0 U/L (34-104); Anion Gap 6.0 (3-11); Bilirubin,Total 0.6 mg/dl (0.2-1.0); Blood Urea Nitrogen 21.0 mg/dl (6-23); Calcium 8.9 mg/dl (8.6-10.3); Carbon Dioxide 31.0 mmol/L (21-32); Chloride 105.0 mmol/L (98-107); Creatinine Clr Calc Pharmacy 84.8 ml/min; Globulin 2.2 gm/dl (2.5-4.0); Glucose 113.0 mg/dl (70-99(Fasting)); Potassium 4.2 mmol/L (3.5-5.1); Sodium 142.0 mmol/L (136-145); Total Protein 6.3 gm/dl (6.0-8.3)
[2025-03-15] MEDS: HEPARIN SOD (PORCINE) 1000 UNIT/ML IV ONE (09:24)
--- NOTE | 2025-03-15 09:56 | Hospitalist Progress Note ---
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 quitted smoking in 1984. since december 2024; been having worsening exertional chest pain and shortness of breath. his also mentioned he's has worsening wheezing. he's now noticing resting chest pain and prsented to our ED for evauation, he's was found to has hypoxic and started on 2 liter oxygen. he s/p CT chest his WBC is elevated at 11-12, and will be admitted to medicine services for unstable angina and acute respiratory failure 1 unstable angina 2. acute respiratory failure 3. hx of A-fib on eliquis 4. hx of erectile dysfunction on talafail 5. hx of renal mass 6. bipolar disorder 7. BPH 8. family hx of premature CAD 1. unstable angina symptom started since December 2024, normally half block exercise tolerance, reporducible exertional symptoms Cardiology does not feel that chest discomfort of dyspnea are anginal however plan to increased metoprolol dosage from 50mg to 75mg he last dose talafail on Thursday evening. cardiology requested pulmonary evaluation appreciate cardiology input about benefit from LHC and RHC high dose statin, crestor 20mg, aspirin hold eliquis, heparin ACS dose 2. acute respiratory failure ceftriaxone, oxygen 2liter oxygen s/p CT chest w/o contrsat on 03/13, no pneumonia duoneb, mucinex 3. hx of A-fib he's take eliquis 5mg and he's on metoprolol XL 50mg lisinopril 20mg and lasix 20mg daily he's off eliquis and bridging with heparin 4. mood disorder, bipolar, he's on abilify 5mg and cymbalta 60mg and wellbutrin substain release 150mg daily 5. hypothyroidism-levothyroxine 125 mcg 6. BPH-flomax 0.4mg 7. erectile dysfunction, tadalafil 20mg PRN (2) Acute respiratory failure: Admission and Anticipated Discharge Date Admission Date: March 13, 2025 Results & Data Results & Data Vital Signs (Past 12 Hours) Vital Signs Temp Pulse Pulse Resp BP BP Pulse Ox 03/15/25 08:42 98.1 F 64 20 136/57 L 97 03/15/25 03:17 98.1 F 60 18 135/86 93 03/14/25 23:23 98.1 F 62 18 126/75 98 03/14/25 22:15 69 O2 Del Method O2 Flow Rate 03/15/25 08:42 Nasal Cannula 2 03/15/25 03:17 Nasal Cannula 3 03/14/25 23:23 Nasal Cannula 3 03/14/25 22:15 PG Care Time/CCT Total # of Minutes Spent Total Time Spent with Patient: Total time spent is greater than 50% in coordination of care (as documented) at patient's floor/unit and/or counseling patient: Coding Diagnoses Unstable angina I20.0 Acute respiratory failure J96.00
--- NOTE | 2025-03-15 10:08 | Cardiology Progress Note ---
Date of Service March 15, 2025 Assessment & Plan (1) Chest pain: (2) Dyspnea on exertion: (3) Paroxysmal A-fib: Plan 1. Chest pain: Although his description of chest discomfort is suggestive of ischemia I do not believe that is the case. He may have coronary artery disease but I do not believe that is causing his symptoms and I do not believe he has ischemia. I think we should do an outpatient CTA to look at his coronary arteries although I suspect it would be negative, however if it is not then we should consider a catheterization. 2. Dyspnea on exertion: This is longstanding and he seems to have some element of lung disease however he did not drop his oxygen saturation with exercise but we had to stop the treadmill test because of shortness of breath without hypoxia and without lung findings. 3. Atrial fibrillation: He is not demonstrated this during his hospitalization and that does not seem to be a component of his difficulty with exertion. He is on low-dose metoprolol and Eliquis for this as an outpatient. Admission and Anticipated Discharge Date Admission Date: March 13, 2025 Subjective He has not had much chest pain or shortness of breath recently. Physical Exam Physical Exam: Constitutional: Alert, cooperative and in no distress. HEENT: Unremarkable Neck: No jugular venous distention, carotid pulses are normal and equal bilaterally without bruits. Pulmonary: Clear to auscultation bilaterally. Cardiac: Regular rhythm with no murmur, gallop or rub. Abdomen: Soft, nontender with normal bowel sounds. Extremities: No edema. Neurologic: No focal findings. Gait is steady (to bathroom). Skin: No rash, ecchymoses or petechiae. Results & Data Vital Signs (Past 12 Hours) Vital Signs Temp Pulse Pulse Resp BP BP Pulse Ox 03/15/25 08:42 36.7 C 64 20 136/57 L 97 03/15/25 03:17 36.7 C 60 18 135/86 93 03/14/25 23:23 36.7 C 62 18 126/75 98 03/14/25 22:15 69 O2 Del Method O2 Flow Rate 03/15/25 08:42 Nasal Cannula 2 03/15/25 03:17 Nasal Cannula 3 03/14/25 23:23 Nasal Cannula 3 03/14/25 22:15 Laboratory Results Cardiac Enzymes 03/15/25 Range/Units 05:56 AST 11 L (13-39) U/L CBC 03/15/25 Range/Units 05:56 WBC 15.16 H (4.8-10.8) K/ul RBC 5.91 (4.70-6.10) M/uL Hgb 12.3 L (14.0-18.0) g/dl Hct 39.6 L (42.0-52.0) % Plt Count 226 (130-400) K/uL Comprehensive Metabolic Panel 03/15/25 Range/Units 05:56 Sodium 142 (136-145) mmol/L Potassium 4.2 (3.5-5.1) mmol/L Chloride 105 (98-107) mmol/L Carbon Dioxide 31 (21-32) mmol/L BUN 21 (6-23) mg/dl Creatinine 1.16 (0.6-1.4) mg/dl Glucose 113 H (70-99(Fasting)) mg/dl Calcium 8.9 (8.6-10.3) mg/dl AST 11 L (13-39) U/L ALT 15 (7-52) U/L Alkaline Phosphatase 53 (34-104) U/L Total Protein 6.3 (6.0-8.3) gm/dl Albumin 4.1 (3.4-5.0) gm/dl Intake and Output 03/14/25 03/15/25 03/15/25 22:59 06:59 14:59 Intake Total 700 / 1213.000 338.333 / 1213.000 49.667 / 49.667 Output Total 600 / 2325 775 / 2325 Balance 100 / -1112.000 -436.667 / -1112.000 49.667 / 49.667 Intake: IV 338.333 / 513.000 49.667 / 49.667 Heparin 57455 Unit/500 ml D5w 338.333 / 513.000 49.667 / 49.667 25,000 units In 500 ml @ 1,000 UNITS/HR 20 mls/hr IV .Q24H [facility] Rx#:[id number] Oral 700 / 700 Output: Urine 300 / 1675 775 / 1675 Other 300 / 650 Other: Other Intake Source Npo Weight 119.5 kg Diagnostic Findings I did perform a treadmill stress test today, we did this without supplemental oxygen. He did not exercise very well but he did go into stage II and he became extremely dyspneic without chest discomfort and the test had to be stopped. We did do it with a pulse oximeter and his oxygen saturation was normal at baseline without oxygen and did not drop with exercise. I listened to his lungs and they were clear at peak exercise. PG Care Time/CCT Total # of Minutes Spent Total Time Spent with Patient: Total time spent is greater than 50% in coordination of care (as documented) at patient's floor/unit and/or counseling patient: Coding Level of Care Code 23955 SUB INP/OBS CARE 2/35MIN Diagnoses Chest pain, unspecified type R07.9 Chest pain type: unspecified Dyspnea on exertion R06.00 Paroxysmal A-fib I48.0 (1) Chest pain Chest pain type: unspecified Qualified Code(s): R07.9 - Chest pain, unspecified
[2025-03-15] MEDS: AZITHROMYCIN 250 MG TAB PO SCH (10:33)
[2025-03-15 11:29] VITALS: RESP 16; TEMP 98.2; O2SAT 91
--- NOTE | 2025-03-15 12:07 | Pulmonology Progress Note ---
Date of Service March 15, 2025 Assessment & Plan (1) NASSAR (dyspnea on exertion): (2) Chest heaviness: (3) FATOU on CPAP: (4) Elevated hemidiaphragm: Plan The patient has relatively benign pulmonary history. Very distant history of tobacco use. Still smokes marijuana however. Prior to the past few weeks he did not have respiratory symptoms. Imaging of the chest does not show evidence of acute infiltrates concerning for pneumonia. Inflammatory markers including ESR, CRP and procalcitonin are low. No significant peripheral eosinophilia prior to steroids on admission and no significant atopy history. The patient does endorse significant chest heaviness and dizziness associated with his dyspnea. Troponins and EKG however within normal limits. Cardiology is consulted and echocardiogram is pending. Less likely PE given chronic use of Eliquis and negative lower extremity duplex. Recommendations: Thus far cardiopulmonary workup has been unrevealing. Inflammatory markers and procalcitonin are low. Viral PCR is negative. Patient is not having fevers, chills or symptoms concerning for pneumonia. Cefepime was stopped and the patient is on azithromycin. I agree with this, can continue for total of 5 days. Patient has been on heparin drip. He has not had any symptoms of chest pain overnight. Heart rate seems better controlled with higher dose of metoprolol. Echo was grossly within normal limits. The patient has not been wearing his CPAP at night, this could contribute to atelectasis and some mild hypoxia. I recommend that he use this. I did order CPAP or he can use his home machine whichever is desired. At this time I do not believe there is any need to pursue any further pulmonary workup while he is inpatient. In the outpatient setting the patient should have full PFTs performed with DLCO and bronchodilators. Recommend avoiding any sort of inhaled smoke product or vaping. Recommend using CPAP and wean oxygen as tolerated. I will sign off at this time. Please call me directly with any questions. Patient may follow-up if desired in the pulmonary clinic in 6 to 8 weeks. Admission and Anticipated Discharge Date Admission Date: March 13, 2025 Subjective Patient seen and examined during bedside rounds this morning. was at bedside this morning. Overnight the patient had some low oxygen saturations but again he did not wear a CPAP and that was offered to him. He did not have any episodes of shortness of breath or chest pain/pressure overnight. His echo came back and was grossly within normal limits. Having a mild cough but no phlegm production. No wheezing or abnormal breath sounds on my exam today. No fevers or chills overnight. Review of Systems Review of Systems: A 12 point review of systems was obtained in detail. Negative except as noted in HPI. Physical Exam Physical Exam: Physical examination: General: Well-appearing, well-nourished and not in acute distress. HEENT: Normocephalic, atraumatic. Extraocular movements intact. Sclera are nonicteric. No JVD appreciated. Skin: Warm and dry. No rashes appreciated. No jaundice appreciated. Lymphatic: No pathologic/enlarged lymph nodes palpated in the neck or supraclavicular region. Cardiovascular: Heart is a regular rate and rhythm, no murmurs appreciated on my exam. No significant lower extremity edema. Lungs: Good air movement bilaterally, no wheezing appreciated. Nontachypneic. Resting comfortably on nasal cannula. Abdomen: Protuberant, nondistended, nontender to palpation. Musculoskeletal: Normal muscle mass and tone. No gross joint deformity abnormalities. No effusions appreciated. Neurologic: Awake and alert, oriented. CN II through XII are grossly intact. Speech is fluent. Nonfocal exam. Psychiatric: Appropriate cooperative during my exam. Results & Data Results & Data Vital Signs (Past 12 Hours) Vital Signs Temp Pulse Resp BP BP Pulse Ox O2 Del Method 03/15/25 11:29 36.8 C 69 16 148/87 H 91 Room Air 03/15/25 08:42 36.7 C 64 20 136/57 L 97 Nasal Cannula 03/15/25 03:17 36.7 C 60 18 135/86 93 Nasal Cannula O2 Flow Rate 03/15/25 11:29 03/15/25 08:42 2 03/15/25 03:17 3 PG Care Time/CCT Total # of Minutes Spent Total Time Spent with Patient: Total time spent is greater than 50% in coordination of care (as documented) at patient's floor/unit and/or counseling patient: [place] [address] SUB INP/OBS CARE 2/35MIN Patient Type Established History Detailed Exam Detailed Medical Decision Making Moderate Complexity Diagnoses NASSAR (dyspnea on exertion) R06.09 Chest heaviness R07.89 FATOU on CPAP G47.33 Elevated hemidiaphragm J98.6
[2025-03-15 15:26] VITALS: BP 135/86; PULSE 77
--- NOTE | 2025-03-15 18:15 | Discharge Summary ---
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 quitted smoking in 1984. since december 2024; been having worsening exertional chest pain and shortness of breath. his also mentioned he's has worsening wheezing. ON pointed questioning, pt states that sometimes he gets chest pain short of breath, but sometimes can walk and exert himself without any occurrence hx of A-fib on eliquis chest pain stress test terminated 09/20 due to shortness of breath and non diagnostic Cardiology does not feel that chest discomfort of dyspnea are anginal however add amlodipine to metoprolol incase is spasm he last dose talafail on Thursday evening, recommened no furthrer tadalafil and no more marijuiana smoking cardiology requested pulmonary evaluation, they do not feel that pulmonary is the primary professional driver of his symptoms statin, crestor 20mg, aspirin resume eliquis, respiratory failure, some exertional hypoxia did discuss with pulm med, recommend no LABA/steroids but reinforced fatou treatment s/p CT chest w/o contrsat on 03/13, no pneumonia Echo without right heart strain or pulm htn, also low likelihood of pe with current anticoagulation hx of A-fib he's take eliquis 5mg and he's on metoprolol XL 50mg lisinopril 20mg and lasix 20mg daily afib rate does not seem to correlate with symptoms mood disorder, bipolar, he's on abilify 5mg and cymbalta 60mg and wellbutrin substain release 150mg daily hypothyroidism-levothyroxine 125 mcg BPH-flomax 0.4mg erectile dysfunction, recommended not to continue tadalafil 20mg PRN Notes For Next Care Provider may wish to have second opinion of repeat stress test or LHC, contsider formal pulm eval and pft's, Admission HPI Per Admitting Provider Mr. Albaro Preston is a 64 yo male with PMH of A-fib on eliquis, hypertension, BPHdiverticulitis s/p colon resection he's take talafil for erectile dysfunction. he has family hx of premature CAD. he has renal mass and being evaluated by [facility] his baseline exercise tolerance is half a block since December 2024, he been having worsening exertional chest pain and shortness of breath, he's will walk several steps and started noticing chest pain and shortness of breath pain can last between 15 minutes to 1 hours. he's is now having resting chest discomfort. on Thursday (mar 13, 2025), he's presented to our ED for chest pain, worsening shortness of breath he's was found to be hypoxic on oxygen. given that he's has resting chest pain, he was admitted for medicine services for unstable angina, acute respiratory failure he will ACS dose, up-titrate of metoprolol he last took his elqiuis on 03/13/2025 morning Discharge Exam pt was without symptoms and had regular cardiac exam and pulmonary exam Discharge Plan Discharge Items Patient Disposition: Home - Self-Care Reason For Visit: UNSTABLE ANGINA, HYPOXIC 2-3 LITER Discharge Diagnosis: chest pain, consider coronary artery vasospasm lower oxygen level on presentation Condition on Discharge: Fair Activity: Per Instructions section Activity Comment: work back gradual activity Non-emergency contact: Primary Care Provider Call non-emergency contact if: your symptoms worsen Follow-up/Referrals: Angelique Bowman MD [Primary Care Provider] - (PLEASE CALL YOUR PRIMARY CARE PROVIDER TO SCHEDULE A HOSPITAL FOLLOW-UP APPOINTMENT WITHIN 7-10 DAYS) Diet: Regular Addtl Attending Provider Instructions: we did not specifically locate a direct cause but did note that you do have some lower oxygen levels with exertion, we will reinforce that you use your nighttime CPAP and discuss pulmonary rehab with your primary care doctor For the possibility of spasm of your coronary arteries causing some symptoms will start amlodipine medication, perhaps your primary care can consider coronary CT scan to look at your coronary artery calcificaion for concerns of coronary artery spasm it will be recommended that you do not use tadalafil until you have further discussion with your primary care avoid inhalation of dust or smoke of any kind Pending Studies at Discharge: No Stand-Alone Forms: My [employer], Smoking Cessation Medications and DC Order Prescriptions: New amlodipine 5 mg tablet 5 mg PO DAILY Qty: 30 4RF Continued bupropion HCl [Wellbutrin SR] 150 mg tablet sustained-release 12 hr 150 mg PO QAM Qty: 90 3RF levothyroxine 125 mcg tablet 125 mcg PO QAM Qty: 90 3RF Eliquis 5 mg tablet 5 mg PO BID Qty: 180 3RF metoprolol succinate [Toprol XL] 50 mg tablet extended release 24 hr 50 mg PO HS Qty: 90 3RF atorvastatin [Lipitor] 10 mg tablet 10 mg PO QAM Qty: 90 3RF calcitriol 0.5 mcg capsule 0.5 mcg PO BID Qty: 180 1RF tamsulosin 0.4 mg capsule 0.4 mg PO QAM Qty: 90 3RF aripiprazole [Abilify] 5 mg tablet 10 mg PO PM cholecalciferol (vitamin D3) 5,000 unit tablet 1,000 units PO PM cyanocobalamin (vitamin B-12) 500 mcg Tablet 0 mcg PO QAM Patient Comments: otc unknown dose, most common OTC dosing ascorbic acid (vitamin C) [Vitamin C] 500 mg Tablet 500 mg PO PM zinc 50 mg Tablet 50 mg PO PM pregabalin 50 mg capsule 50 mg PO TID testosterone 20.25 mg/1.25 gram (1.62 %) gel in metered-dose pump 2 pump TOP DAILY Rx Instructions: apply 1 pump amount over max area of EACH upper arm and shoulder lisinopril 20 mg tablet 20 mg PO QAM furosemide [Lasix] 20 mg tablet 20 mg PO UD PRN (Reason: edema) Patient Comments: 03/13- per spouse, he's been taking BID for the past week Medical Marijuana Card 1 dose UD PRN (Reason: Back Pain) Patient Comments: smokeable Held tadalafil 20 mg tablet 20 mg PO UD PRN (Reason: sexual activity) Hold Instructions: Provider's Order Rx Instructions: administer approximately 30min before sexual activity; do not use more than 1 dose per 24hrs Discharge Orders: Discharge Order (Routine); Ordered 03/15/25 Ordered By: Yifan Kaufman Admission Data Admit Date/Time: 03/13/25 12:34 Attending Provider: Yifan Kaufman Admit Provider: Glenys Nicholas Primary Care Provider: Angelique Bowman Other Providers: Glenys Nicholas; Rishabh Bagley; Vivienne Isabel Other Interventions: Discharge Summary Assessment (RN) Last Done: 03/15/25 15:22 Hospital Stay Data Consultations 03/13/25 12:01 ED Decision to Admit Stat 03/13/25 12:36 Consult Cardiology Stat 03/14/25 08:03 Consult Pulmonology Routine Diagnostic Imagining Performed 03/13/25 12:57 US venous duplex leg [US venous doppler LE BI] Stat 03/13/25 15:32 CT chest diagnostic wo con Stat Pending Results Patient Have Any Pending Studies at Discharge: No Discharge Instructions Given to Patient (Per Discharging Provider) we did not specifically locate a direct cause but did note that you do have some lower oxygen levels with exertion, we will reinforce that you use your nighttime CPAP and discuss pulmonary rehab with your primary care doctor For the possibility of spasm of your coronary arteries causing some symptoms will start amlodipine medication, perhaps your primary care can consider coronary CT scan to look at your coronary artery calcificaion for concerns of coronary artery spasm it will be recommended that you do not use tadalafil until you have further discussion with your primary care avoid inhalation of dust or smoke of any kind Total Time Total Time Spent Total Time Spent (In Minutes): I personally have spent greater than 30 minutes of time on the patient discharge today including review of tests, documentation, exam, and discussing treatment plan moving forward with the patient. Coding Level of Care Code 87236 INP/OBS DISCH >30 MIN Diagnoses Acute respiratory failure J96.00 FATOU on CPAP G47.33 Chest pain, unspecified type R07.9 Chest pain type: unspecified
--- NOTE | 2025-03-16 16:33 | Electrocardiogram Report ---
Test Reason : Blood Pressure : */* mmHG Vent. Rate : 117 BPM Atrial Rate : * BPM P-R Int : * ms QRS Dur : 84 ms QT Int : 282 ms P-R-T Axes : * 12 29 degrees QTcB Int : 393 ms Atrial fibrillation with rapid ventricular response Abnormal ECG When compared with ECG of 13-Mar-2025 13:03, (unconfirmed) Atrial fibrillation has replaced Sinus rhythm Vent. rate has increased by 42 bpm Confirmed by Rishabh Bagley ([id number]) on 03/16/2025 4:32:46 PM Referred By: REFERRED SELF Confirmed By: Rishabh Bagley
--- NOTE | 2025-03-17 15:46 | Electrocardiogram Report ---
Test Reason : Blood Pressure : */* mmHG Vent. Rate : 72 BPM Atrial Rate : 72 BPM P-R Int : 148 ms QRS Dur : 90 ms QT Int : 358 ms P-R-T Axes : 73 18 33 degrees QTcB Int : 392 ms Normal sinus rhythm Normal ECG When compared with ECG of 16-Aug-2024 12:10, Nonspecific T wave abnormality no longer evident in Lateral leads Confirmed by Rishabh Bagley ([id number]) on 03/17/2025 3:46:07 PM Referred By: REFERRED SELF Confirmed By: Rishabh Bagley
--- NOTE | 2025-03-17 16:18 | Electrocardiogram Report ---
Test Reason : Blood Pressure : */* mmHG Vent. Rate : 75 BPM Atrial Rate : 75 BPM P-R Int : 142 ms QRS Dur : 90 ms QT Int : 380 ms P-R-T Axes : 21 30 43 degrees QTcB Int : 424 ms Normal sinus rhythm Normal ECG When compared with ECG of 13-Mar-2025 09:24, (unconfirmed) No significant change was found Confirmed by Rishabh Bagley ([id number]) on 03/17/2025 4:17:54 PM Referred By: REFERRED SELF Confirmed By: Rishabh Bagley
== END 2025-03-15 16:16 | disposition home or self-care (01) | DRG 302 ==
LOC: ED 09:05 → SUATTDRO 12:34 → EDINP 12:34 → 2N 18:53